=== PATIENT | female | born 1940 | race Caucasian/White ===

== ENCOUNTER 2022-12-14 19:21 | Inpatient (IN) ==
[2022-12-14] MEDS ORDERED: SODIUM CHLORIDE 0.9% 1000ML 1,000 ML IV ONE ×2 (20:06→20:18)
--- NOTE | 2022-12-14 20:15 | Emergency Department Note ---
History of Present Illness General Chief complaint: Fall Stated complaint: Fall, Facial Elam, AMS, Urinary Symptoms Time Seen by Provider: 12/14/22 20:01 Source: patient, RN notes reviewed and old records reviewed Mode of arrival: ambulatory Limitations: no limitations History of Present Illness This patient is a 82-year-old female was brought in by EMS. Apparently she fell 2 or so days ago and was put back in the chair and when they came to check on her she was still in the chair and was more confused. No reported fever she has either elam or lesions on her left face chest and groin area as well as left anterior thigh. She is not sure how this happened. Denies that they itch. Denies chest pain or shortness of breath or numbness or weakness. Home Medications Medication Instructions Recorded Confirmed Type furosemide 20 mg tablet 20 mg PO QAM 12/14/22 12/14/22 History lisinopril 5 mg tablet 5 mg PO QAM 12/14/22 12/14/22 History Allergies Allergy/AdvReac Type Severity Reaction Status Date / Time No Known Allergies Allergy Unverified 12/14/22 22:31 Past Med/Surg History Social History Smoking Status: Unknown if ever smoked Preferred Language: Lithuanian Feels Safe at Home: Yes Immunizations: Past medical historyunknown Review of Systems A total of 10 systems reviewed and were otherwise negative Physical Exam Vital Signs Vital Signs - 24 hr 12/14/22 19:43 12/14/22 20:06 12/14/22 20:23 Temperature 36.9 C Temperature Source Oral Pulse Rate 109 H 101 H Pulse Rate [Apical] Pulse Rhythm [Apical] Pulse Strength [Apical] Respiratory Rate 22 22 Respiratory Effort / Characteristics Non-Labored Spontaneous Respiratory Depth Normal Respiratory Pattern Regular Blood Pressure 164/128 H 179/119 H Blood Pressure [Left Arm] Blood Pressure Mean 140 139 Blood Pressure Mean [Left Arm] Blood Pressure Position Semi-fowlers Blood Pressure Position [Left Arm] Pulse Oximetry 96 97 97 Oxygen Delivery Method Room Air Room Air Room Air Sepsis Recent Fever Within 48 Hours No Sepsis New/Unexplained Change in Mental Status Yes Sepsis Action Taken by Nursing Physician Notified 12/14/22 21:39 12/14/22 22:03 12/14/22 23:30 Temperature 36.5 C Temperature Source Oral Pulse Rate 100 H Pulse Rate [Apical] 95 H 97 H Pulse Rhythm [Apical] Regular Regular Pulse Strength [Apical] Normal Respiratory Rate 20 20 20 Respiratory Effort / Characteristics Non-Labored Spontaneous Non-Labored Spontaneous Respiratory Depth Normal Normal Respiratory Pattern Regular Regular Blood Pressure 172/107 H Blood Pressure [Left Arm] 191/116 H 187/107 H Blood Pressure Mean 128 Blood Pressure Mean [Left Arm] 141 133 Blood Pressure Position Blood Pressure Position [Left Arm] Semi-fowlers Semi-fowlers Pulse Oximetry 96 96 98 Oxygen Delivery Method Room Air Room Air Room Air Sepsis Recent Fever Within 48 Hours Sepsis New/Unexplained Change in Mental Status Sepsis Action Taken by Nursing General: Well developed well nourished older female who does seem to answer questions appropriately but vaguely in no acute distress, breathing comfortably on room air. Normal speech HEENT: Normal cephalic atraumatic with exception of a burn/lesion on the left cheek it is mildly red. Pupils are equal round and reactive to light. There is a small subconjunctival hematoma in the left lateral eye extraocular movements are intact. Oropharynx is pink with moist mucous membranes. No swelling of the mouth lips or tongue. Neck: Supple with a midline trachea. No meningeal signs or stiffness, no JVD or bruits. No Stridor. Chest: Clear to auscultation bilaterally. No wheezes or rhonchi. No increased work of breathing. Heart: Regular rate and rhythm without murmurs or gallops. Abdomen: Soft nontender, nondistended without rebound guarding or rigidity. Extremities: No cyanosis clubbing or edema. No calf tenderness or assymetry Spine/Back. Non tender to palpation. No CVA tenderness Skin: Good turgor. There is further skin lesions/rash in the groin as well as in the anterior chest and left anterior thigh Neurologic exam: Cranial nerves two through 12 are intact. Motor and sensation are intact and symmetrical throughout. Course Administered Medications Potassium Chloride/Sodium Chloride (Normal Saline W/20 Meq Kcl) 20 meq in 1,000 mls @ 80 mls/hr IV .[id number] ONE; Protocol Stop: 12/15/22 11:29 Last Admin: 12/14/22 22:48 Dose: 80 mls/hr Documented By: JT Discontinued Medications Sodium Chloride (Nss 1000ml) 1,000 mls @ 999 mls/hr IV .Q1H1M ONE Stop: 12/14/22 21:06 Last Infusion: 12/14/22 21:26 Dose: 0 mls/hr Documented By: Admin: 12/14/22 20:25 Dose: 999 mls/hr Documented By: JEREMIAS Piperacillin Sod/Tazobactam Sod (Zosyn) 4.5 gm in 120 mls @ 240 mls/hr IV NOW ONE Stop: 12/14/22 21:08 Last Infusion: 12/14/22 22:06 Dose: 0 mls/hr Documented By: Admin: 12/14/22 21:36 Dose: 240 mls/hr Documented By: JEREMIAS Sodium Chloride (Nss 1000ml) 500 mls @ 999 mls/hr IV .Q31M ONE Stop: 12/14/22 22:33 Last Infusion: 12/14/22 22:41 Dose: 0 mls/hr Documented By: Admin: 12/14/22 22:10 Dose: 999 mls/hr Documented By: JEREMIAS Lisinopril (Lisinopril 5 Mg Tab) 5 mg PO NOW ONE Stop: 12/14/22 22:46 Last Admin: 12/14/22 22:49 Dose: 5 mg Documented By: JEREMIAS Potassium Chloride (Potassium Chloride Crtab 20 Meq Tabcr) 40 meq PO NOW STA Stop: 12/14/22 22:18 Last Admin: 12/14/22 22:49 Dose: 40 meq Documented By: JEREMIAS Critical Care Time Critical Care Time: Yes Total Critical Care Time: 45 This patient was flagged as a Priority patient and thus I went in and promptly and saw her. Due to trauma, concern for sepsis and rhabdo, frequent re assessment and evaluation, consultation with the hospitalist, IV fluids and multiple testing, I have personally spent greater than 45 minutes of critical care time in the direct management of this patient. This includes bedside care, interpretation of diagnostic studies, and testing, discussion with consultants, patient, and family members, and other required patient management activities. This 45 minutes is in excess of all separately billable procedures. Multiple testing, Medical Decision Making Differential Diagnosis Sepsis, fall, trauma, dehydration, rhabdo, infection, UTI, electrolyte or metabolic abnormality Medical Records Attestation: I reviewed the patient's medical records. Home Medications Current Medication List: was personally reviewed by me Laboratory Data Attestation: I reviewed the patient's lab results. 12/14/22 20:20 12/14/22 20:20 Lab Results 12/14/22 12/14/22 12/14/22 Range/Units 20:13 20:20 20:20 WBC 13.67 H (4.8-10.8) K/ul RBC 4.63 (4.20-5.40) M/uL Hgb 14.0 (12.0-16.0) g/dl POC Hgb (12.0-16.0) g/dl Hct 41.6 (37.0-47.0) % POC Hct (37-47) % MCV 89.8 (80.0-100.0) fL MCH 30.2 (25.0-34.0) pg MCHC 33.7 (32.0-36.0) g/dL RDW Std Deviation 46.6 H (36.4-46.3) fL RDW Coeff of Champ 14.1 (11.5-14.5) % Plt Count 247 (130-400) K/uL MPV 9.9 (9.4-12.4) fL Immature Gran % (Auto) 0.4 % Neut % (Auto) 75.8 % Lymph % (Auto) 12.2 % [place] % (Auto) 10.8 % Eos % (Auto) 0.4 % Baso % (Auto) 0.4 % Neut # (Auto) 10.36 H (1.40-6.50) K/uL Lymph # (Auto) 1.67 (1.2-3.4) K/uL [place] # (Auto) 1.48 H (0.11-0.59) K/uL Eos # (Auto) 0.05 (0-0.50) K/uL Baso # (Auto) 0.05 (0-0.2) K/uL Immature Gran # (Auto) 0.06 (0.01-0.20) K/uL PT (9.0-12.0) Seconds INR (0.9-1.1) APTT (21.0-31.0) Seconds PTT Ratio POC Sodium (135-144) mmol/L Sodium 140 (136-145) mmol/L POC Potassium (3.3-5.0) mmol/L Potassium 3.3 L (3.5-5.1) mmol/L POC Chloride (101-112) mmol/L Chloride 103 (98-107) mmol/L Carbon Dioxide 28 (21-32) mmol/L POC Total CO2 (24-31) mmol/L Anion Gap 9 (3-11) POC Anion Gap (16-25) mmol/L POC BUN (7-18) mg/dl BUN 33 H (6-23) mg/dl Creatinine 0.79 (0.6-1.2) mg/dl POC Creatinine (0.6-1.3) mg/dl Est Cr Clr Drug Dosing Not Reportable Est GFR ( Amer) 80.2 ml/min Est GFR (Non-Af Amer) 69.2 ml/min BUN/Creatinine Ratio 41.8 H (10-20) Glucose 106 H (70-99(Fasting)) mg/dl POC Glucose (other) (70-99) mg/dl Lactate (0.4-2.0) mmol/L Calcium 9.6 (8.6-10.3) mg/dl POC Ioniz Calcium Asya (1.12-1.32) mmol/l Magnesium 2.2 (1.7-2.4) mg/dl Total Bilirubin 1.5 H (0.2-1.0) mg/dl Direct Bilirubin 0.2 (0-0.2) mg/dl AST 185 H (13-39) U/L ALT 89 H (7-52) U/L Alkaline Phosphatase 87 (34-104) U/L Total Creatine Kinase 4725 H (26-192) U/L Troponin I High Sens 112.2 H* (0-14) pg/ml Total Protein 7.4 (6.0-8.3) gm/dl Albumin 3.9 (3.4-5.0) gm/dl Procalcitonin (0-0.5) ng/ml Urine Color Urine Appearance (Clear) Urine pH (4.5-7.5) Ur Specific [place] (1.000-1.030) Urine Protein (Negative) Urine Glucose (UA) (Negative) Urine Ketones (Negative) Urine Blood (Negative) Urine Nitrite (Negative) Urine Bilirubin (Negative) Urine Urobilinogen (Negative) Ur Leukocyte Esterase (Negative) Urine WBC (Auto) (0-5) /hpf Urine RBC (Auto) (0-4) /hpf U Hyaline Cast (Auto) (0-5) /lpf U Epithel Cells (Auto) (0-5) /lpf Urine Bacteria (Auto) (Negative) SARS-CoV-2, RNA, NAAT NEGATIVE (NEGATIVE) 12/14/22 12/14/22 12/14/22 Range/Units 20:20 20:20 20:20 WBC (4.8-10.8) K/ul RBC (4.20-5.40) M/uL Hgb (12.0-16.0) g/dl POC Hgb (12.0-16.0) g/dl Hct (37.0-47.0) % POC Hct (37-47) % MCV (80.0-100.0) fL MCH (25.0-34.0) pg MCHC (32.0-36.0) g/dL RDW Std Deviation (36.4-46.3) fL RDW Coeff of Champ (11.5-14.5) % Plt Count (130-400) K/uL MPV (9.4-12.4) fL Immature Gran % (Auto) % Neut % (Auto) % Lymph % (Auto) % [place] % (Auto) % Eos % (Auto) % Baso % (Auto) % Neut # (Auto) (1.40-6.50) K/uL Lymph # (Auto) (1.2-3.4) K/uL [place] # (Auto) (0.11-0.59) K/uL Eos # (Auto) (0-0.50) K/uL Baso # (Auto) (0-0.2) K/uL Immature Gran # (Auto) (0.01-0.20) K/uL PT 11.0 (9.0-12.0) Seconds INR 1.0 (0.9-1.1) APTT 25.0 (21.0-31.0) Seconds PTT Ratio 0.9 POC Sodium (135-144) mmol/L Sodium (136-145) mmol/L POC Potassium (3.3-5.0) mmol/L Potassium (3.5-5.1) mmol/L POC Chloride (101-112) mmol/L Chloride (98-107) mmol/L Carbon Dioxide (21-32) mmol/L POC Total CO2 (24-31) mmol/L Anion Gap (3-11) POC Anion Gap (16-25) mmol/L POC BUN (7-18) mg/dl BUN (6-23) mg/dl Creatinine (0.6-1.2) mg/dl POC Creatinine (0.6-1.3) mg/dl Est Cr Clr Drug Dosing Est GFR ( Amer) ml/min Est GFR (Non-Af Amer) ml/min BUN/Creatinine Ratio (10-20) Glucose (70-99(Fasting)) mg/dl POC Glucose (other) (70-99) mg/dl Lactate 1.5 (0.4-2.0) mmol/L Calcium (8.6-10.3) mg/dl POC Ioniz Calcium Asya (1.12-1.32) mmol/l Magnesium (1.7-2.4) mg/dl Total Bilirubin (0.2-1.0) mg/dl Direct Bilirubin (0-0.2) mg/dl AST (13-39) U/L ALT (7-52) U/L Alkaline Phosphatase (34-104) U/L Total Creatine Kinase (26-192) U/L Troponin I High Sens (0-14) pg/ml Total Protein (6.0-8.3) gm/dl Albumin (3.4-5.0) gm/dl Procalcitonin 0.23 (0-0.5) ng/ml Urine Color Urine Appearance (Clear) Urine pH (4.5-7.5) Ur Specific [place] (1.000-1.030) Urine Protein (Negative) Urine Glucose (UA) (Negative) Urine Ketones (Negative) Urine Blood (Negative) Urine Nitrite (Negative) Urine Bilirubin (Negative) Urine Urobilinogen (Negative) Ur Leukocyte Esterase (Negative) Urine WBC (Auto) (0-5) /hpf Urine RBC (Auto) (0-4) /hpf U Hyaline Cast (Auto) (0-5) /lpf U Epithel Cells (Auto) (0-5) /lpf Urine Bacteria (Auto) (Negative) SARS-CoV-2, RNA, NAAT (NEGATIVE) 12/14/22 12/14/22 Range/Units 20:22 20:27 WBC (4.8-10.8) K/ul RBC (4.20-5.40) M/uL Hgb (12.0-16.0) g/dl POC Hgb 14.3 (12.0-16.0) g/dl Hct (37.0-47.0) % POC Hct 42 (37-47) % MCV (80.0-100.0) fL MCH (25.0-34.0) pg MCHC (32.0-36.0) g/dL RDW Std Deviation (36.4-46.3) fL RDW Coeff of Champ (11.5-14.5) % Plt Count (130-400) K/uL MPV (9.4-12.4) fL Immature Gran % (Auto) % Neut % (Auto) % Lymph % (Auto) % [place] % (Auto) % Eos % (Auto) % Baso % (Auto) % Neut # (Auto) (1.40-6.50) K/uL Lymph # (Auto) (1.2-3.4) K/uL [place] # (Auto) (0.11-0.59) K/uL Eos # (Auto) (0-0.50) K/uL Baso # (Auto) (0-0.2) K/uL Immature Gran # (Auto) (0.01-0.20) K/uL PT (9.0-12.0) Seconds INR (0.9-1.1) APTT (21.0-31.0) Seconds PTT Ratio POC Sodium 142 (135-144) mmol/L Sodium (136-145) mmol/L POC Potassium 3.4 (3.3-5.0) mmol/L Potassium (3.5-5.1) mmol/L POC Chloride 104 (101-112) mmol/L Chloride (98-107) mmol/L Carbon Dioxide (21-32) mmol/L POC Total CO2 27 (24-31) mmol/L Anion Gap (3-11) POC Anion Gap 15.0 L (16-25) mmol/L POC BUN 30 H (7-18) mg/dl BUN (6-23) mg/dl Creatinine (0.6-1.2) mg/dl POC Creatinine 0.8 (0.6-1.3) mg/dl Est Cr Clr Drug Dosing Est GFR ( Amer) ml/min Est GFR (Non-Af Amer) ml/min BUN/Creatinine Ratio (10-20) Glucose (70-99(Fasting)) mg/dl POC Glucose (other) 108 H (70-99) mg/dl Lactate (0.4-2.0) mmol/L Calcium (8.6-10.3) mg/dl POC Ioniz Calcium Asya 1.13 (1.12-1.32) mmol/l Magnesium (1.7-2.4) mg/dl Total Bilirubin (0.2-1.0) mg/dl Direct Bilirubin (0-0.2) mg/dl AST (13-39) U/L ALT (7-52) U/L Alkaline Phosphatase (34-104) U/L Total Creatine Kinase (26-192) U/L Troponin I High Sens (0-14) pg/ml Total Protein (6.0-8.3) gm/dl Albumin (3.4-5.0) gm/dl Procalcitonin (0-0.5) ng/ml Urine Color Yellow Urine Appearance Clear (Clear) Urine pH 6.0 (4.5-7.5) Ur Specific [place] 1.015 (1.000-1.030) Urine Protein 2+ H (Negative) Urine Glucose (UA) Negative (Negative) Urine Ketones Trace H (Negative) Urine Blood 2+ H (Negative) Urine Nitrite Negative (Negative) Urine Bilirubin Negative (Negative) Urine Urobilinogen Negative (Negative) Ur Leukocyte Esterase Negative (Negative) Urine WBC (Auto) 1-5 (0-5) /hpf Urine RBC (Auto) 10-30 H (0-4) /hpf U Hyaline Cast (Auto) 1-5 (0-5) /lpf U Epithel Cells (Auto) 0-5 (0-5) /lpf Urine Bacteria (Auto) Negative (Negative) SARS-CoV-2, RNA, NAAT (NEGATIVE) Imaging Data Attestation: I personally reviewed and interpreted this imaging study as follows: My Impression: Chest x-rayno acute infiltrate, failure, pneumothorax seen Head CTno hemorrhage or mass effect seen. Radiologist's Impression: Cervical Spine CT 12/14/22 20:39 Exam(s): CT C SPINE EXAM: CT Cervical Spine Without Intravenous Contrast CLINICAL HISTORY: Reason for exam: fall. TECHNIQUE: Axial computed tomography images of the cervical spine without intravenous contrast. CTDI is 25.44 mGy and DLP is 531.45 mGy-cm. Automated exposure control was utilized for the study. A dose lowering technique was utilized adhering to the principles of ALARA. COMPARISON: No relevant prior studies available. FINDINGS: Vertebrae: Unremarkable. No acute fracture. Discs/spinal canal/neural foramina: Moderately advanced multilevel degenerative disc disease changes seen most prominently at C5/6 and C6/7 junction. No spinal canal stenosis. Soft tissues: Unremarkable. IMPRESSION: No acute fracture or dislocation Electronically signed by: Jimmy Clarke MD 12/14/22 22:[address] 12/14/22 20:39 Exam(s): CT CHEST Without Contrast EXAM: CT Chest Without Intravenous Contrast CLINICAL HISTORY: Reason for exam: fall. TECHNIQUE: Axial computed tomography images of the chest without intravenous contrast. CTDI is 37.32 mGy and DLP is 624.41 mGy-cm. Automated exposure control was utilized for the study. A dose lowering technique was utilized adhering to the principles of ALARA. COMPARISON: No relevant prior studies available. FINDINGS: Lungs: Unremarkable. No mass. No consolidation. Pleural space: Unremarkable. No pneumothorax. No significant effusion. Heart: Moderate cardiomegaly. Mild coronary vascular calcifications are seen. No significant pericardial effusion. Bones/joints: Unremarkable. No acute fracture. No dislocation. Lymph nodes: Unremarkable. No enlarged lymph nodes. IMPRESSION: No acute traumatic injuries seen in the chest Electronically signed by: Jimmy Clarke MD 12/14/22 22:[address] 12/14/22 20:39 Exam(s): CT FACIAL Without Contrast EXAM: CT Maxillofacial Without Intravenous Contrast CLINICAL HISTORY: Reason for exam: fall. TECHNIQUE: Axial computed tomography images of the face without intravenous contrast. CTDI is none 36.26 mGy and DLP is 697.26 mGy-cm. Automated exposure control was utilized for the study. A dose lowering technique was utilized adhering to the principles of ALARA. COMPARISON: No relevant prior studies available. FINDINGS: Bones/joints: No acute fracture. Soft tissues: Unremarkable. Orbits: Unremarkable. Sinuses: Unremarkable. No air-fluid levels. IMPRESSION: Normal maxillofacial CT. Electronically signed by: Jimmy Clarke MD 12/14/22 22:[address] 12/14/22 20:39 Exam(s): CT HEAD Without Contrast EXAM: CT Head Without Intravenous Contrast CLINICAL HISTORY: Reason for exam: fall. TECHNIQUE: Axial computed tomography images of the head/brain without intravenous contrast. CTDI is 36.26 mGy and DLP is 697.26 mGy-cm. Automated exposure control was utilized for the study. A dose lowering technique was utilized adhering to the principles of ALARA. COMPARISON: No relevant prior studies available. FINDINGS: Brain: Chronic periventricular ischemic demargination changes seen due to small vessel disease. No hemorrhage. Ventricles: Unremarkable. No ventriculomegaly. Bones/joints: Unremarkable. No acute fracture. Soft tissues: Unremarkable. Sinuses: Unremarkable as visualized. No acute sinusitis. Mastoid air cells: Unremarkable as visualized. No mastoid effusion. IMPRESSION: No acute intracranial abnormality Electronically signed by: Jimmy Clarke MD 12/14/22 22:25 PM Abdomen/Pelvis CT 12/14/22 20:42 Exam(s): CT ABDOMEN + PELVIS Without Contrast EXAM: CT Abdomen and Pelvis Without Intravenous Contrast CLINICAL HISTORY: Reason for exam: fall. TECHNIQUE: Axial computed tomography images of the abdomen and pelvis without intravenous contrast. CTDI is 37.32 mGy and DLP is 624.41 mGy-cm. Automated exposure control was utilized for the study. A dose lowering technique was utilized adhering to the principles of ALARA. COMPARISON: No relevant prior studies available. FINDINGS: Lung bases: Unremarkable. No mass. No consolidation. Heart: Mild cardiomegaly. ABDOMEN: Liver: Unremarkable. Gallbladder and bile ducts: Unremarkable. No calcified stones. No ductal dilation. Pancreas: Unremarkable. No ductal dilation. Spleen: Unremarkable. No splenomegaly. Adrenals: Unremarkable. No mass. Kidneys and ureters: Unremarkable. No obstructing stones. No hydronephrosis. Stomach and bowel: Unremarkable. No obstruction. No mucosal thickening. PELVIS: Appendix: No findings to suggest acute appendicitis. Bladder: Unremarkable. No stones. Reproductive: Unremarkable as visualized. ABDOMEN and PELVIS: Intraperitoneal space: Unremarkable. No free air. No significant fluid collection. 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 No acute fracture. No dislocation. Soft tissues: Unremarkable. Vasculature: Moderately advanced vascular calcifications seen in the abdominal aorta and its branches. No abdominal aortic aneurysm. Lymph nodes: Unremarkable. No enlarged lymph nodes. IMPRESSION: No acute intra-abdominal process identified Electronically signed by: Jimmy Clarke MD 12/14/22 22:28 PM ECG Data Attestation: I personally reviewed and interpreted this ECG as follows: Indication: + weakness Rate (beats per minute): 103 Rhythm: + sinus tachycardia ECG Intervals/blocks: + Normal QRS, + Normal QT and + Normal CT ECG Sylvester: + Normal ECG ST segments: + Normal ST segments ECG Findings: + PACs and + PVCs Comparison ECG Date: from (02/18/04) Change: the following changes noted (Occasional PVCs and PACs are now present) MDM Narrative This patient comes in as described above. She was placed in room B2 she is a p riority patient so I went and saw her she has either elam or some sort of lesions on her left face groin left anterior thigh and chest. The one on her face is red. She also has a subconjunctival hematoma on that side. She denies any shortness of breath or chest pain. IV X established was hydrated with normal saline bolus full sepsis type work-up was obtained there is no old records in our computer she tells me her doctor is Dr. Dia so I had her field nurse case manager pull records from [email or web address] to ensure that she has no allergies and check other medical issues. She tells me she has no allergies. White count was elevated at 13.6 however her other inflammatory markers with lactate and proca lcitonin were not elevated at her BUN was elevated at 33. Her CK did come back significant elevated 4007 and 25 consistent with rhabdo. Her troponin is mildly elevated at 112 which could also be from rhabdomyolysis, she has no chest pain and no EKG changes thus far. She has received IV fluid boluses. She did receive IV Zosyn initially with concern for sepsis. We have cleaned her room wounds and place some bacitracin particular in the face. I did scruggs trauma type scans without contrast given the concern for rhabdo and they were all negative as per the radiologist. I have consulted Dr. Bloom and I do think she needs to be admitted/observed for further treatment evaluation and hydration. He saw her in the ER we will admit her for these measures. Continuous cardiac monitoring: Orders placed in EMR for continuous cardiac monitoring: Upon my evaluation patient to be in sinus tachycardia with a rate of 100 Impression & Plan Rhabdomyolysis, Fall, Weakness, Acute dehydration, Lab test negative for COVID- 19 virus, Skin lesion Discharge Plan Visit Data Chief Complaint: Fall Stated Complaint: Fall, Facial Elam, AMS, Urinary Symptoms ED Provider: Benjamin Russell Discharge Problem: Rhabdomyolysis, Fall, Weakness, Acute dehydration, Lab test negative for COVID- 19 virus, Skin lesion Forms Stand Alone Forms: My [facility] Prescriptions Prescriptions: No Action furosemide 20 mg tablet 20 mg PO QAM lisinopril 5 mg tablet 5 mg PO QAM Referrals Referrals: PCP,NO [Physician] -
[2022-12-14] MEDS ORDERED: PIPERACILLIN/TAZOBACTAM 4.5 GM/120 ML BAG IV ONE (20:39)
[2022-12-14 20:40] LABS: iSTAT Creatinine 0.8 mg/dl (0.6-1.3); iSTAT Hemoglobin 14.3 g/dl (12.0-16.0); iSTAT Ionized Calcium 1.13 mmol/l (1.12-1.32); iSTAT Potassium 3.4 mmol/L (3.3-5.0)
[2022-12-14 20:49] LABS: Basophils # (auto) 0.05 K/uL (0-0.2); Basophils % (auto) 0.4 %; Eosinophils # (auto) 0.05 K/uL (0-0.50); Eosinophils % (auto) 0.4 %; Hematocrit (blood only) 41.6 % (37.0-47.0); Immature Granulocytes # (auto) 0.06 K/uL (0.01-0.20); Immature Granulocytes % (auto) 0.4 %; Lymphocytes # (auto) 1.67 K/uL (1.2-3.4); Lymphocytes % (auto) 12.2 %; Mean Corpuscular Hemoglobin 30.2 pg (25.0-34.0); Mean Corpuscular Hgb Conc 33.7 g/dL (32.0-36.0); Mean Corpuscular Volume 89.8 fL (80.0-100.0); Mean Platelet Volume 9.9 fL (9.4-12.4); Monocytes # (auto) 1.48 K/uL (0.11-0.59); Monocytes % (auto) 10.8 %; Neutrophils # (auto) 10.36 K/uL (1.40-6.50); Neutrophils % (auto) 75.8 %; Platelet Count 247 K/uL (130-400); RDW Coefficient of Variation 14.1 % (11.5-14.5); RDW Standard Deviation 46.6 fL (36.4-46.3); Red Blood Count 4.63 M/uL (4.20-5.40); White Blood Count 13.67 K/ul (4.8-10.8)
[2022-12-14 20:59] LABS: Appearance Urine Clear (Clear); Bacteria Urine Automated Negative (Negative); Bilirubin Urine Negative (Negative); Blood Urine 2+ (Negative); Color Urine Yellow; Epithelial Cell Urine Auto 0-5 /lpf (0-5); Glucose Urine UA Negative (Negative); Ketones Urine Trace (Negative); Leukocyte Esterase Urine Negative (Negative); Nitrite Urine Negative (Negative); Protein Urine 2+ (Negative); Specific Gravity Urine 1.015 (1.000-1.030); Urobilinogen Urine Negative (Negative)
[2022-12-14 21:09] LABS: Anion Gap 9 (3-11); BUN Creatinine Ratio 41.8 (10-20); Blood Urea Nitrogen 33 mg/dl (6-23); Calcium 9.6 mg/dl (8.6-10.3); Carbon Dioxide 28 mmol/L (21-32); Chloride 103 mmol/L (98-107); Est GFR (African American) 80.2 ml/min; Est GFR (Non-African American) 69.2 ml/min; Glucose 106 mg/dl (70-99(Fasting)); Potassium 3.3 mmol/L (3.5-5.1); Sodium 140 mmol/L (136-145)
[2022-12-14 21:26] LABS: Partial Thromboplastin Ratio 0.9
[2022-12-14 21:32] LABS: Alanine Aminotransferase 89 U/L (7-52); Albumin Level 3.9 gm/dl (3.4-5.0); Alkaline Phosphatase 87 U/L (34-104); Aspartate Aminotransferase 185 U/L (13-39); Bilirubin Direct 0.2 mg/dl (0-0.2); Bilirubin,Total 1.5 mg/dl (0.2-1.0); Creatine Kinase 4725 U/L (26-192); Magnesium 2.2 mg/dl (1.7-2.4); Total Protein 7.4 gm/dl (6.0-8.3); Troponin I High Sensitivity 112.2 pg/ml (0-14)
[2022-12-14] MEDS ORDERED: SODIUM CHLORIDE 0.9% 1000ML 500 ML IV ONE (22:03)
[2022-12-14] MEDS ORDERED: POTASSIUM CHLORIDE CRTAB 20 MEQ TABCR PO STA (22:17)
--- NOTE | 2022-12-14 22:18 | CT Scan Report ---
Exam(s): CT C SPINE EXAM: CT Cervical Spine Without Intravenous Contrast CLINICAL HISTORY: Reason for exam: fall. TECHNIQUE: Axial computed tomography images of the cervical spine without intravenous contrast. CTDI is 25.44 mGy and DLP is 531.45 mGy-cm. Automated exposure control was utilized for the study. A dose lowering technique was utilized adhering to the principles of ALARA. COMPARISON: No relevant prior studies available. FINDINGS: Vertebrae: Unremarkable. No acute fracture. Discs/spinal canal/neural foramina: Moderately advanced multilevel degenerative disc disease changes seen most prominently at C5/6 and C6/7 junction. No spinal canal stenosis. Soft tissues: Unremarkable. IMPRESSION: No acute fracture or dislocation Electronically signed by: Jimmy Clarke MD 12/14/22 22:18 PM
--- NOTE | 2022-12-14 22:21 | CT Scan Report ---
Exam(s): CT CHEST Without Contrast EXAM: CT Chest Without Intravenous Contrast CLINICAL HISTORY: Reason for exam: fall. TECHNIQUE: Axial computed tomography images of the chest without intravenous contrast. CTDI is 37.32 mGy and DLP is 624.41 mGy-cm. Automated exposure control was utilized for the study. A dose lowering technique was utilized adhering to the principles of ALARA. COMPARISON: No relevant prior studies available. FINDINGS: Lungs: Unremarkable. No mass. No consolidation. Pleural space: Unremarkable. No pneumothorax. No significant effusion. Heart: Moderate cardiomegaly. Mild coronary vascular calcifications are seen. No significant pericardial effusion. Bones/joints: Unremarkable. No acute fracture. No dislocation. Lymph nodes: Unremarkable. No enlarged lymph nodes. IMPRESSION: No acute traumatic injuries seen in the chest Electronically signed by: Jimmy Clarke MD 12/14/22 22:20 PM
--- NOTE | 2022-12-14 22:26 | CT Scan Report ---
Exam(s): CT HEAD Without Contrast EXAM: CT Head Without Intravenous Contrast CLINICAL HISTORY: Reason for exam: fall. TECHNIQUE: Axial computed tomography images of the head/brain without intravenous contrast. CTDI is 36.26 mGy and DLP is 697.26 mGy-cm. Automated exposure control was utilized for the study. A dose lowering technique was utilized adhering to the principles of ALARA. COMPARISON: No relevant prior studies available. FINDINGS: Brain: Chronic periventricular ischemic demargination changes seen due to small vessel disease. No hemorrhage. Ventricles: Unremarkable. No ventriculomegaly. Bones/joints: Unremarkable. No acute fracture. Soft tissues: Unremarkable. Sinuses: Unremarkable as visualized. No acute sinusitis. Mastoid air cells: Unremarkable as visualized. No mastoid effusion. IMPRESSION: No acute intracranial abnormality Electronically signed by: Jimmy Clarke MD 12/14/22 22:25 PM
--- NOTE | 2022-12-14 22:28 | CT Scan Report ---
Exam(s): CT FACIAL Without Contrast EXAM: CT Maxillofacial Without Intravenous Contrast CLINICAL HISTORY: Reason for exam: fall. TECHNIQUE: Axial computed tomography images of the face without intravenous contrast. CTDI is none 36.26 mGy and DLP is 697.26 mGy-cm. Automated exposure control was utilized for the study. A dose lowering technique was utilized adhering to the principles of ALARA. COMPARISON: No relevant prior studies available. FINDINGS: Bones/joints: No acute fracture. Soft tissues: Unremarkable. Orbits: Unremarkable. Sinuses: Unremarkable. No air-fluid levels. IMPRESSION: Normal maxillofacial CT. Electronically signed by: Jimmy Clarke MD 12/14/22 22:27 PM
--- NOTE | 2022-12-14 22:29 | CT Scan Report ---
Exam(s): CT ABDOMEN + PELVIS Without Contrast EXAM: CT Abdomen and Pelvis Without Intravenous Contrast CLINICAL HISTORY: Reason for exam: fall. TECHNIQUE: Axial computed tomography images of the abdomen and pelvis without intravenous contrast. CTDI is 37.32 mGy and DLP is 624.41 mGy-cm. Automated exposure control was utilized for the study. A dose lowering technique was utilized adhering to the principles of ALARA. COMPARISON: No relevant prior studies available. FINDINGS: Lung bases: Unremarkable. No mass. No consolidation. Heart: Mild cardiomegaly. ABDOMEN: Liver: Unremarkable. Gallbladder and bile ducts: Unremarkable. No calcified stones. No ductal dilation. Pancreas: Unremarkable. No ductal dilation. Spleen: Unremarkable. No splenomegaly. Adrenals: Unremarkable. No mass. Kidneys and ureters: Unremarkable. No obstructing stones. No hydronephrosis. Stomach and bowel: Unremarkable. No obstruction. No mucosal thickening. PELVIS: Appendix: No findings to suggest acute appendicitis. Bladder: Unremarkable. No stones. Reproductive: Unremarkable as visualized. ABDOMEN and PELVIS: Intraperitoneal space: Unremarkable. No free air. No significant fluid collection. 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 No acute fracture. No dislocation. Soft tissues: Unremarkable. Vasculature: Moderately advanced vascular calcifications seen in the abdominal aorta and its branches. No abdominal aortic aneurysm. Lymph nodes: Unremarkable. No enlarged lymph nodes. IMPRESSION: No acute intra-abdominal process identified Electronically signed by: Jimmy Clarke MD 12/14/22 22:28 PM
[2022-12-14] MEDS ORDERED: Patient's ALLERGY Info needs ENTERED SCH (22:30)
[2022-12-14] MEDS ORDERED: lisinopril 5 MG TAB PO ONE (22:45)
[2022-12-14] MEDS ORDERED: NSS + 20MEQ KCL 20 MEQ/1,000 ML BAG IV ONE (23:00)
--- NOTE | 2022-12-15 01:31 | History & Physical Report ---
Date of Service December 15, 2022 Assessment & Plan (1) Sepsis: Plan: Secondary to infected wounds on the face and other parts of the body Rhabdomyolysis secondary to fall/infection History ambulatory dysfunction Hypertensive urgency Systolic murmur on exam lung cancer status post surgery chronic leg edema as per records diuretic Rx ovarian cancer status post surgery Hyperglycemia rule out DM undiagnosed dementia as per family, functional disability Medical telemetry CS, Cefepime, Doxycycline Follow CPK response to IVF Titrate lisinopril TTE Re: Systolic murmur check hemoglobin A1c PT OT eval Social service re: discharge planning, may need placement DVT prophylaxis. Lovenox subcu Full code until further discussion with family. Attempted to contact patient daughter (Ms. Annie Talley, contact #[phone]) over the phone to obtain additional history and to discuss plan of care. No answer. Left message for call back. Text document was generated using [employer] voice recognition software. It may contain grammatical or spelling errors. Kindly contact undersigned for clarification of any documentation item in question. History of Present Illness Chief Complaint: I do not know as per patient Primary Care Provider: Brayan Johnson MD History obtained from patient, ER provider, and records. Medical history significant for hypertension, lung cancer status post surgery, chronic leg edema as per records, ovarian cancer status post surgery, ambulatory dysfunction, undiagnosed dementia as per family. Patient lives at home with her . Patient fell at home about 2 days ago as per EMS report. Family able to sit patient back in recliner chair. Patient noted to be more confused than usual last night. EMS found patient to have wounds on the left cheek and blistering redness in other parts of the body. Patient strongly smelled of urine and was incontinent of stool. Patient does not know why she is in the hospital. Denies headache, chest pain, SOB, abdominal pain, dysuria symptoms. Highest SBP of 190s at the ER. Medical History as above Surgical History : Double lung lobectomy, FLORY Family History : Hypertension Personal/Social history : Non-smoker, occasional EtOH intake, lives with Allergies Allergy/AdvReac Type Severity Reaction Status Date / Time No Known Allergies Allergy Unverified 12/14/22 22:31 Home Medications Medication Instructions Recorded Confirmed Type furosemide 20 mg tablet 20 mg PO QAM 12/14/22 12/14/22 History lisinopril 5 mg tablet 5 mg PO QAM 12/14/22 12/14/22 History Past Med/Surg History Social History Smoking Status: Unknown if ever smoked Hx Alcohol Use: No Hx Substance Use: No Preferred Language: Kyrgyz Windows System Admin Required: No Beliefs That Will Affect Care: None Current Living Situation: Spouse Feels Safe at Home: Yes Review of Systems Review of Systems: Could not be reliably obtained secondary to dementia Physical Exam Physical Exam: GENERAL: Pleasant, demented, no respiratory distress SKIN: Normal color, erythematous spots chest and lower extremities, warm HEENT: [place] palpebral conjunctivae, tender left facial swelling, infected open wound left cheek, left ptosis, dry buccal mucosa NECK : Supple, no tenderness CHEST : CTA, no tenderness HEART : Tachycardic, systolic murmur ABDOMEN: Some distention, nontender EXTREMITIES : Bilateral LE swelling, no LE tenderness, no other conspicuous deformities noted NEUROLOGIC : Demented, no facial asymmetry, no other gross focality Results & Data Results & Data Vital Signs (Past 12 Hours) Vital Signs Temp Pulse Pulse Resp BP BP Pulse Ox 12/15/22 00:00 102 H 20 144/103 H 95 12/15/22 00:45 37.1 C 12/14/22 23:30 100 H 20 172/107 H 98 12/14/22 22:03 97 H 20 187/107 H 96 12/14/22 21:39 36.5 C 95 H 20 191/116 H 96 12/14/22 20:23 101 H 22 179/119 H 97 12/14/22 20:06 97 12/14/22 19:43 36.9 C 109 H 22 164/128 H 96 O2 Del Method 12/15/22 00:00 Room Air 12/15/22 00:45 12/14/22 23:30 Room Air 12/14/22 22:03 Room Air 12/14/22 21:39 Room Air 12/14/22 20:23 Room Air 12/14/22 20:06 Room Air 12/14/22 19:43 Room Air Laboratory Results Laboratory Results WBC 13.67 K/ul (4.8-10.8) H 12/14/22 20:20 RBC 4.63 M/uL (4.20-5.40) 12/14/22 20:20 Hgb 14.0 g/dl (12.0-16.0) 12/14/22 20:20 POC Hgb 14.3 g/dl (12.0-16.0) 12/14/22 20:27 Hct 41.6 % (37.0-47.0) 12/14/22 20:20 POC Hct 42 % (37-47) 12/14/22 20:27 MCV 89.8 fL (80.0-100.0) 12/14/22 20:20 MCH 30.2 pg (25.0-34.0) 12/14/22 20:20 MCHC 33.7 g/dL (32.0-36.0) 12/14/22 20:20 RDW Std Deviation 46.6 fL (36.4-46.3) H 12/14/22 20:20 RDW Coeff of Champ 14.1 % (11.5-14.5) 12/14/22 20:20 Plt Count 247 K/uL (130-400) 12/14/22 20:20 MPV 9.9 fL (9.4-12.4) 12/14/22 20:20 Immature Gran % (Auto) 0.4 % 12/14/22 20:20 Neut % (Auto) 75.8 % 12/14/22 20:20 Lymph % (Auto) 12.2 % 12/14/22 20:20 [place] % (Auto) 10.8 % 12/14/22 20:20 Eos % (Auto) 0.4 % 12/14/22 20:20 Baso % (Auto) 0.4 % 12/14/22 20:20 Neut # (Auto) 10.36 K/uL (1.40-6.50) H 12/14/22 20:20 Lymph # (Auto) 1.67 K/uL (1.2-3.4) 12/14/22 20:20 [place] # (Auto) 1.48 K/uL (0.11-0.59) H 12/14/22 20:20 Eos # (Auto) 0.05 K/uL (0-0.50) 12/14/22 20:20 Baso # (Auto) 0.05 K/uL (0-0.2) 12/14/22 20:20 Immature Gran # (Auto) 0.06 K/uL (0.01-0.20) 12/14/22 20:20 PT 11.0 Seconds (9.0-12.0) 12/14/22 20:20 INR 1.0 (0.9-1.1) 12/14/22 20:20 APTT 25.0 Seconds (21.0-31.0) 12/14/22 20:20 PTT Ratio 0.9 12/14/22 20:20 POC Sodium 142 mmol/L (135-144) 12/14/22 20:27 Sodium 140 mmol/L (136-145) 12/14/22 20:20 POC Potassium 3.4 mmol/L (3.3-5.0) 12/14/22 20:27 Potassium 3.3 mmol/L (3.5-5.1) L 12/14/22 20:20 POC Chloride 104 mmol/L (101-112) 12/14/22 20:27 Chloride 103 mmol/L (98-107) 12/14/22 20:20 Carbon Dioxide 28 mmol/L (21-32) 12/14/22 20:20 POC Total CO2 27 mmol/L (24-31) 12/14/22 20:27 Anion Gap 9 (3-11) 12/14/22 20:20 POC Anion Gap 15.0 mmol/L (16-25) L 12/14/22 20:27 POC BUN 30 mg/dl (7-18) H 12/14/22 20:27 BUN 33 mg/dl (6-23) H 12/14/22 20:20 Creatinine 0.79 mg/dl (0.6-1.2) 12/14/22 20:20 POC Creatinine 0.8 mg/dl (0.6-1.3) 12/14/22 20:27 Est Cr Clr Drug Dosing Not Reportable 12/14/22 20:20 Est GFR ( Amer) 80.2 ml/min 12/14/22 20:20 Est GFR (Non-Af Amer) 69.2 ml/min 12/14/22 20:20 BUN/Creatinine Ratio 41.8 (10-20) H 12/14/22 20:20 Glucose 106 mg/dl (70-99(Fasting)) H 12/14/22 20:20 POC Glucose (other) 108 mg/dl (70-99) H 12/14/22 20:27 Lactate 1.5 mmol/L (0.4-2.0) 12/14/22 20:20 Calcium 9.6 mg/dl (8.6-10.3) 12/14/22 20:20 POC Ioniz Calcium Asya 1.13 mmol/l (1.12-1.32) 12/14/22 20:27 Magnesium 2.2 mg/dl (1.7-2.4) 12/14/22 20:20 Total Bilirubin 1.5 mg/dl (0.2-1.0) H 12/14/22 20:20 Direct Bilirubin 0.2 mg/dl (0-0.2) 12/14/22 20:20 AST 185 U/L (13-39) H 12/14/22 20:20 ALT 89 U/L (7-52) H 12/14/22 20:20 Alkaline Phosphatase 87 U/L (34-104) 12/14/22 20:20 Total Creatine Kinase 4725 U/L (26-192) H 12/14/22 20:20 Troponin I High Sens 112.2 pg/ml (0-14) H* 12/14/22 20:20 Total Protein 7.4 gm/dl (6.0-8.3) 12/14/22 20:20 Albumin 3.9 gm/dl (3.4-5.0) 12/14/22 20:20 Procalcitonin 0.23 ng/ml (0-0.5) 12/14/22 20:20 Urine Color Yellow 12/14/22 20:22 Urine Appearance Clear (Clear) 12/14/22 20:22 Urine pH 6.0 (4.5-7.5) 12/14/22 20:22 Ur Specific [place] 1.015 (1.000-1.030) 12/14/22 20:22 Urine Protein 2+ (Negative) H 12/14/22 20:22 Urine Glucose (UA) Negative (Negative) 12/14/22 20:22 Urine Ketones Trace (Negative) H 12/14/22 20:22 Urine Blood 2+ (Negative) H 12/14/22 20:22 Urine Nitrite Negative (Negative) 12/14/22 20:22 Urine Bilirubin Negative (Negative) 12/14/22 20:22 Urine Urobilinogen Negative (Negative) 12/14/22 20:22 Ur Leukocyte Esterase Negative (Negative) 12/14/22 20:22 Urine WBC (Auto) 1-5 /hpf (0-5) 12/14/22 20:22 Urine RBC (Auto) 10-30 /hpf (0-4) H 12/14/22 20:22 U Hyaline Cast (Auto) 1-5 /lpf (0-5) 12/14/22 20:22 U Epithel Cells (Auto) 0-5 /lpf (0-5) 12/14/22 20:22 Urine Bacteria (Auto) Negative (Negative) 12/14/22 20:22 SARS-CoV-2, RNA, NAAT NEGATIVE (NEGATIVE) 12/14/22 20:[address] 12/14/22 20:39 Exam(s): CT C SPINE EXAM: CT Cervical Spine Without Intravenous Contrast CLINICAL HISTORY: Reason for exam: fall. TECHNIQUE: Axial computed tomography images of the cervical spine without intravenous contrast. CTDI is 25.44 mGy and DLP is 531.45 mGy-cm. Automated exposure control was utilized for the study. A dose lowering technique was utilized adhering to the principles of ALARA. COMPARISON: No relevant prior studies available. FINDINGS: Vertebrae: Unremarkable. No acute fracture. Discs/spinal canal/neural foramina: Moderately advanced multilevel degenerative disc disease changes seen most prominently at C5/6 and C6/7 junction. No spinal canal stenosis. Soft tissues: Unremarkable. IMPRESSION: No acute fracture or dislocation Electronically signed by: Jimmy Clarke MD 12/14/22 22:[address] 12/14/22 20:39 Exam(s): CT CHEST Without Contrast EXAM: CT Chest Without Intravenous Contrast CLINICAL HISTORY: Reason for exam: fall. TECHNIQUE: Axial computed tomography images of the chest without intravenous contrast. CTDI is 37.32 mGy and DLP is 624.41 mGy-cm. Automated exposure control was utilized for the study. A dose lowering technique was utilized adhering to the principles of ALARA. COMPARISON: No relevant prior studies available. FINDINGS: Lungs: Unremarkable. No mass. No consolidation. Pleural space: Unremarkable. No pneumothorax. No significant effusion. Heart: Moderate cardiomegaly. Mild coronary vascular calcifications are seen. No significant pericardial effusion. Bones/joints: Unremarkable. No acute fracture. No dislocation. Lymph nodes: Unremarkable. No enlarged lymph nodes. IMPRESSION: No acute traumatic injuries seen in the chest Electronically signed by: Jimmy Clarke MD 12/14/22 22:[address] 12/14/22 20:39 Exam(s): CT FACIAL Without Contrast EXAM: CT Maxillofacial Without Intravenous Contrast CLINICAL HISTORY: Reason for exam: fall. TECHNIQUE: Axial computed tomography images of the face without intravenous contrast. CTDI is none 36.26 mGy and DLP is 697.26 mGy-cm. Automated exposure control was utilized for the study. A dose lowering technique was utilized adhering to the principles of ALARA. COMPARISON: No relevant prior studies available. FINDINGS: Bones/joints: No acute fracture. Soft tissues: Unremarkable. Orbits: Unremarkable. Sinuses: Unremarkable. No air-fluid levels. IMPRESSION: Normal maxillofacial CT. Electronically signed by: Jimmy Clarke MD 12/14/22 22:[address] 12/14/22 20:39 Exam(s): CT HEAD Without Contrast EXAM: CT Head Without Intravenous Contrast CLINICAL HISTORY: Reason for exam: fall. TECHNIQUE: Axial computed tomography images of the head/brain without intravenous contrast. CTDI is 36.26 mGy and DLP is 697.26 mGy-cm. Automated exposure control was utilized for the study. A dose lowering technique was utilized adhering to the principles of ALARA. COMPARISON: No relevant prior studies available. FINDINGS: Brain: Chronic periventricular ischemic demargination changes seen due to small vessel disease. No hemorrhage. Ventricles: Unremarkable. No ventriculomegaly. Bones/joints: Unremarkable. No acute fracture. Soft tissues: Unremarkable. Sinuses: Unremarkable as visualized. No acute sinusitis. Mastoid air cells: Unremarkable as visualized. No mastoid effusion. IMPRESSION: No acute intracranial abnormality Electronically signed by: Jimmy Clarke MD 12/14/22 22:25 PM Abdomen/Pelvis CT 12/14/22 20:42 Exam(s): CT ABDOMEN + PELVIS Without Contrast EXAM: CT Abdomen and Pelvis Without Intravenous Contrast CLINICAL HISTORY: Reason for exam: fall. TECHNIQUE: Axial computed tomography images of the abdomen and pelvis without intravenous contrast. CTDI is 37.32 mGy and DLP is 624.41 mGy-cm. Automated exposure control was utilized for the study. A dose lowering technique was utilized adhering to the principles of ALARA. COMPARISON: No relevant prior studies available. FINDINGS: Lung bases: Unremarkable. No mass. No consolidation. Heart: Mild cardiomegaly. ABDOMEN: Liver: Unremarkable. Gallbladder and bile ducts: Unremarkable. No calcified stones. No ductal dilation. Pancreas: Unremarkable. No ductal dilation. Spleen: Unremarkable. No splenomegaly. Adrenals: Unremarkable. No mass. Kidneys and ureters: Unremarkable. No obstructing stones. No hydronephrosis. Stomach and bowel: Unremarkable. No obstruction. No mucosal thickening. PELVIS: Appendix: No findings to suggest acute appendicitis. Bladder: Unremarkable. No stones. Reproductive: Unremarkable as visualized. ABDOMEN and PELVIS: Intraperitoneal space: Unremarkable. No free air. No significant fluid collection. 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 No acute fracture. No dislocation. Soft tissues: Unremarkable. Vasculature: Moderately advanced vascular calcifications seen in the abdominal aorta and its branches. No abdominal aortic aneurysm. Lymph nodes: Unremarkable. No enlarged lymph nodes. IMPRESSION: No acute intra-abdominal process identified Electronically signed by: Jimmy Clarke MD 12/14/22 22:28 PM Diagnostic Findings EKG as per my interpretation : Rate 105, sinus tachycardia, LAD, LAFB, no ischemia, PVCs
[2022-12-15] MEDS ORDERED: DOXYCYCLINE HYCLATE 100 MG in DEXTROSE 5% 100 ML IV STA (01:55)
[2022-12-15] MEDS ORDERED: cloNIDine HCL 0.1 MG TAB PO ONE (02:14)
[2022-12-15 02:24] LABS: Albumin Level 3.6 gm/dl (3.4-5.0); Bilirubin Direct 0.3 mg/dl (0-0.2); Bilirubin,Total 1.7 mg/dl (0.2-1.0); Total Protein 7.2 gm/dl (6.0-8.3)
[2022-12-15] MEDS ORDERED: Patient's HEIGHT &/or WEIGHT Needed SCH (04:15)
--- NOTE | 2022-12-15 05:30 | Ultrasound Report ---
Exam(s): US VENOUS BILATERAL LOWER EXTREMITIES EXAM: US Duplex Bilateral Lower Extremities Veins CLINICAL HISTORY: Reason for exam: leg swellling. TECHNIQUE: Real-time duplex ultrasound scan of the bilateral lower extremity veins integrating B-mode two-dimensional vascular structure, Doppler spectral analysis, color flow Doppler imaging and compression. COMPARISON: No relevant prior studies available. FINDINGS: Right deep veins: Unremarkable. No DVT in the right common femoral, femoral, proximal deep femoral or popliteal veins. The veins demonstrate normal color flow, are normally compressible, with normal phasic flow and/or augmentation response. Right superficial veins: Unremarkable. No thrombus in the visualized right great saphenous vein. Left deep veins: Unremarkable. No DVT in the left common femoral, femoral, proximal deep femoral or popliteal veins. The veins demonstrate normal color flow, are normally compressible, with normal phasic flow and/or augmentation response. Left superficial veins: Unremarkable. No thrombus in the visualized left great saphenous vein. Soft tissues: No acute findings. No popliteal cyst. IMPRESSION: Normal bilateral lower extremity duplex venous ultrasound. Electronically signed by: Jimmy Clarke MD 12/15/22 05:28 AM
[2022-12-15] MEDS: CEFEPIME 2,000 MG in SYRINGE 0 ML IV SCH ×2 (05:37→16:51)
[2022-12-15 06:11] LABS: Basophils # (auto) 0.03 K/uL (0-0.2); Basophils % (auto) 0.2 %; Eosinophils # (auto) 0.05 K/uL (0-0.50); Eosinophils % (auto) 0.4 %; Hematocrit (blood only) 38.4 % (37.0-47.0); Hemoglobin 13.2 g/dl (12.0-16.0); Immature Granulocytes # (auto) 0.05 K/uL (0.01-0.20); Immature Granulocytes % (auto) 0.4 %; Lymphocytes % (auto) 9.1 %; Mean Corpuscular Hemoglobin 30.3 pg (25.0-34.0); Mean Corpuscular Hgb Conc 34.4 g/dL (32.0-36.0); Mean Corpuscular Volume 88.1 fL (80.0-100.0); Mean Platelet Volume 9.9 fL (9.4-12.4); Monocytes # (auto) 0.93 K/uL (0.11-0.59); Monocytes % (auto) 7.7 %; Neutrophils % (auto) 82.2 %; Platelet Count 235 K/uL (130-400); Red Blood Count 4.36 M/uL (4.20-5.40); White Blood Count 12.06 K/ul (4.8-10.8)
[2022-12-15 06:22] LABS: BUN Creatinine Ratio 34.3 (10-20); Calcium 8.3 mg/dl (8.6-10.3); Creatinine Clr Calc Pharmacy 68.6 ml/min; Est GFR (African American) 94.2 ml/min; Est GFR (Non-African American) 81.3 ml/min; Potassium 3.6 mmol/L (3.5-5.1)
[2022-12-15] MEDS: ENOXAPARIN INJ 40 MG/0.4 ML SYR SQ SCH (08:04)
--- NOTE | 2022-12-15 08:41 | XRay Report ---
XR chest 1V portable HISTORY: Sepsis COMPARISON: Chest CT 12/14/2022. FINDINGS: No pneumothorax. No pleural effusions. Left basilar linear densities consistent with subseg mental atelectasis. The cardiac silhouette is mildly enlarged. No evidence for pulmonary edema. No ac standing rock fractures identified. IMPRESSION: 1. No acute process within the chest. 2. Mild cardiomegaly. ACT 112: Negative or not required by law. Electronically signed by: Jasmeet Arriaga M.D. 12/15/2022 8:40 AM
[2022-12-15] MEDS ORDERED: lisinopril 5 MG TAB PO SCH (09:00)
[2022-12-15] MEDS: ACETAMINOPHEN 325 MG TAB PO PRN (11:53)
[2022-12-15] MEDS: lisinopril 10 MG TAB PO SCH (12:11)
--- NOTE | 2022-12-15 14:11 | Electrocardiogram Report ---
Test Reason : Blood Pressure : / mmHG Vent. Rate : 102 BPM Atrial Rate : 102 BPM P-R Int : 222 ms QRS Dur : 090 ms QT Int : 354 ms P-R-T Axes : 064 -13 079 degrees QTc Int : 461 ms Sinus tachycardia with 1st degree A-V block with occasional Premature ventricular complexes Otherwise normal ECG When compared with ECG of 18-FEB-2004 13:05, Premature ventricular complexes are now Present WI interval has increased Confirmed by Sarthak Bhat ([id number]) on 12/15/2022 2:11:13 PM Referred By: REFERRED SELF Confirmed By:Sarthak Bhat
--- NOTE | 2022-12-15 15:35 | Communication Note ---
Date of Service: December 15, 2022 82-year-old lady with PMH of HTN, lung cancer status post surgery, chronic leg edema, ovarian cancer status post surgery, ambulatory dysfunction, concern of dementia per family [not officially diagnosed per family] was brought into the ED 12/14 secondary to increasing confusion after a fall 2 days ago [employer]. Per EMS evaluation, She had wounds in the left cheek and blistering redness in other parts of the body; she strongly smelled of urine and was incontinent of stool. She is being managed for the following: Infected wounds of the face x Lt and skin Sepsis POA: At presentation, WBC and heart rate elevated. Lactate WNL. Fall, generalized weakness Patient presents with fall and subsequent wound which got infected Admitting CXR/CT C-spine/CT chest/CT face/CT head/CT abdomen pelvis/BLE venous Doppler with no acute findings Continue with cefepime 12/15 and doxycycline 12/15, WBC trending down, patient afebrile. Follow admitting blood culture Rhabdomyolysis: Secondary to fall/infection. Admitting CPK 4725, downtrending. Status post IV fluids. Encourage p.o. intake of fluid. Repeat CPK in AM. Uncontrolled BP: likely 2/2 current active infection/stress. Continue with home lisinopril, Lasix on hold for now. Will monitor, titrate BP needs as appropriate. If not w/ good PO intake, consider putting back on IVF. Likely NSTEMI type II: Admitting troponin 112, flat trended around 100s. Admitting EKG with sinus tachycardia, no acute ST or T changes noted. Admitting echo with EF of 65%, grade 1 diastolic dysfunction, moderate concentric LVH. No wall motion abnormality noted. Patient with reproducible chest pain. Continue to monitor over telemetry. Other chronic medical conditions: Continue with home meds as and when able. lung cancer status post surgery chronic leg edema as per records, on diuretic Rx ovarian cancer status post surgery Hyperglycemia rule out DM undiagnosed dementia as per family, functional disability DVT prophylaxis: Lovenox subcu Full code PT/OT eval. Likely will need placement. Patient's daughter (Ms. Annie Talley, contact #[phone]) On examination, patient slow to respond/answer, left cheek infected wound noted, BLE erythema/warmth noted. For detailed information on the patient, refer to today's H&P note.
[2022-12-15 18:33] LABS: A calco-baum cmplx NotReported Not Detected (NotDetected); Bact fragilis Not Reported Not Detected (NotDetected); C auris Not Reported Not Detected (NotDetected); Calbicans Not Reported Not Detected (NotDetected); Candida glabrata Not Reported Not Detected (NotDetected); Candida krusei Not Reported Not Detected (NotDetected); Cneoformans/gatti Not Reported Not Detected (NotDetected); Cparapsilosis Not Reported Not Detected (NotDetected); Ctropicalis Not Reported Not Detected (NotDetected); E cloacae compx Not Reported Not Detected (NotDetected); Efaecalis Not Reported Not Detected (NotDetected); Efaecium Not Reported Not Detected (NotDetected); Enterobacterales Not Reported Not Detected (NotDetected); Escherichia coli Not Reported Not Detected (NotDetected); H influenzae Not Reported Not Detected (NotDetected); K aerogenes Not Reported Not Detected (NotDetected); Koxytoca Not Reported Not Detected (NotDetected); Kpneumoniae grp Not Reported Not Detected (NotDetected); Lmonocyt Not Reported Not Detected (NotDetected); N meningitidis Not Reported Not Detected (NotDetected); P aeruginosa Not Reported Not Detected (NotDetected); Proteus spp Not Reported Not Detected (NotDetected); Salmonella spp Not Reported Not Detected (NotDetected); Smarcescens Not Reported Not Detected (NotDetected); Staph lugdunensis Not Reported Not Detected (NotDetected); Staph spp. Not Reported DETECTED (NotDetected); Staphaureus Not Reported Not Detected (NotDetected); Staphepi Not Reported Not Detected (NotDetected); Stenmaltophilia Not Reported Not Detected (NotDetected); Strep agal(GrpB) Not Reported Not Detected (NotDetected); Strep pneum Not Reported Not Detected (NotDetected); Strep pyog (GrpA) Not Reported Not Detected (NotDetected); Strep spp Not Reported Not Detected (NotDetected)
[2022-12-15 18:40] LABS: Staphylococcus spp. DETECTED (NotDetected)
[2022-12-15] MEDS: DOXYCYCLINE HYCLATE 100 MG CAP PO SCH (20:41)
[2022-12-16] MEDS: CEFEPIME 2,000 MG in SYRINGE 0 ML IV SCH ×2 (05:51→18:11)
[2022-12-16] MEDS: ENOXAPARIN INJ 40 MG/0.4 ML SYR SQ SCH (08:39)
[2022-12-16] MEDS: DOXYCYCLINE HYCLATE 100 MG CAP PO SCH ×2 (08:41→21:01)
[2022-12-16] MEDS: lisinopril 10 MG TAB PO SCH (08:41)
[2022-12-16 10:31] LABS: Hematocrit (blood only) 39.2 % (37.0-47.0); Hemoglobin 13.5 g/dl (12.0-16.0); Mean Corpuscular Hemoglobin 29.8 pg (25.0-34.0); Mean Corpuscular Hgb Conc 34.4 g/dL (32.0-36.0); Mean Corpuscular Volume 86.5 fL (80.0-100.0); Mean Platelet Volume 9.8 fL (9.4-12.4); Platelet Count 236 K/uL (130-400); RDW Coefficient of Variation 13.7 % (11.5-14.5); RDW Standard Deviation 43.2 fL (36.4-46.3); Red Blood Count 4.53 M/uL (4.20-5.40); White Blood Count 9.51 K/ul (4.8-10.8)
[2022-12-16 10:47] LABS: BUN Creatinine Ratio 29.1 (10-20); Calcium 8.9 mg/dl (8.6-10.3); Creatinine Clr Calc Pharmacy 85.5 ml/min; Est GFR (African American) 100.5 ml/min; Est GFR (Non-African American) 86.7 ml/min; Magnesium 1.8 mg/dl (1.7-2.4); Phosphorus 2.6 mg/dl (2.5-4.9); Potassium 3.4 mmol/L (3.5-5.1)
[2022-12-16] MEDS: FUROSEMIDE 20 MG TAB PO SCH (11:08)
[2022-12-16] MEDS ORDERED: POTASSIUM CHLORIDE CRTAB 20 MEQ TABCR PO STA ×2 (15:43→23:05)
--- NOTE | 2022-12-16 15:53 | Hospitalist Progress Note ---
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 Per pt's daughter, pt has dementia, she has been refusing help with care lately which she was ok with before. Overall she is declining in her functional status per her dtr. She is being managed for the following: Infected wounds of the face x Lt Sepsis POA:At presentation, WBC and heart rate elevated. Lactate WNL. Fall, generalized weakness Patient presents with fall and subsequent wound which got infected Admitting CXR/CT C-spine/CT chest/CT face/CT head/CT abdomen pelvis/BLE venous D oppler with no acute findings Continue with cefepime 12/15 and doxycycline 12/15, WBC trending down, patient afebrile. Follow admitting blood culture -- 1 of 4 bottle +ve; likely contaminant but awaiting repeat 12/15 bl cx and finalization of first culture. Advance diet as tolerated Rhabdomyolysis:Secondary to fall/infection. Admitting CPK 4725, downtrending. Status post IV fluids. Encourage p.o. intake of fluid. Uncontrolled BP:likely 2/2 current active infection/stress. Continue with home lisinopril & Lasix. Will monitor, titrate BP needs as appropriate. Likely NSTEMI type II:Admitting troponin 112, flat trended around 100s. Admitting EKG with sinus tachycardia, no acute ST or T changes noted. Admitting echo with EF of 65%, grade 1 diastolic dysfunction, moderate concentric LVH. No wall motion abnormality noted. Patient with reproducible chest pain. Continue to monitor ov for er telemetry. Other chronic medical conditions:Continue with home meds as and when able. lung cancer status post surgery chronic leg edema as per records, on diuretic Rx ovarian cancer status post surgery Hyperglycemia rule out DM undiagnosed dementia as per family, functional disability DVT prophylaxis: Lovenox subcu Full code PT/OT eval. Likely will need placement. Patient's daughter (Ms. Annie Talley, contact #[phone]); updated 12/16. Admission and Anticipated Discharge Date Admission Date: December 15, 2022 Subjective Patient seen and examined at bedside as a follow-up of infected wounds of the left face and sepsis POA, fall/generalized weakness, rhabdomyolysis, uncontrolled BP, likely NSTEMI type II. Patient was lying in bed, on room air, NAD, reports feeling better today, reports improvement in her generalized body pain today, reports eating dinner yesterday but skipped breakfast today, denies any headache or dizziness or fever or chest pain. Physical Exam Physical Exam: GENERAL: Alert and not oriented. NAD, on RA. pleasant, demented. HEENT: No pallor, no icterus. Pupils equal, round and reactive to light. Oral mucosa moist. Left cheek crusted/infected wound, decreasing erythema. NECK: No JVD, no neck masses. HEART: S1 and S2 heard. Regular rate and rhythm. No murmur, no gallop. RESPIRATORY SYSTEM: Normal AP diameter. No accessory muscle use. No wheezing, no crackles. ABDOMEN: Soft, bowel sounds present, nontender, no distention. CENTRAL NERVOUS SYSTEM: No facial droop. Speech is clear. Obeys simple commands. Moves extremities. EXTREMITIES: No edema, BLE erythema improving. Results & Data Results & Data Vital Signs (Past 12 Hours) Vital Signs Temp Pulse Pulse Resp BP BP Pulse Ox 12/16/22 11:57 36.6 C 97 H 16 155/102 H 18 L 12/16/22 07:57 36.9 C 84 18 195/113 H 93 12/16/22 07:26 65 O2 Del Method 12/16/22 11:57 Room Air 12/16/22 07:57 Room Air 12/16/22 07:26
[2022-12-16] MEDS ORDERED: METOPROLOL TARTRATE 1 MG/ML VIAL IV STA (22:56)
[2022-12-16] MEDS ORDERED: MAGNESIUM SULFATE / D5W 1 GM/100 ML BAG IV ONE (22:56)
[2022-12-17] MEDS: ACETAMINOPHEN 325 MG TAB PO PRN (04:07)
[2022-12-17] MEDS: CEFEPIME 2,000 MG in SYRINGE 0 ML IV SCH ×2 (04:08→16:36)
[2022-12-17 08:04] LABS: Hematocrit (blood only) 39.6 % (37.0-47.0); Hemoglobin 13.4 g/dl (12.0-16.0); Mean Corpuscular Hemoglobin 30.1 pg (25.0-34.0); Mean Corpuscular Hgb Conc 33.8 g/dL (32.0-36.0); Mean Platelet Volume 9.9 fL (9.4-12.4); Platelet Count 249 K/uL (130-400); RDW Coefficient of Variation 13.8 % (11.5-14.5); RDW Standard Deviation 44.6 fL (36.4-46.3); Red Blood Count 4.45 M/uL (4.20-5.40); White Blood Count 8.78 K/ul (4.8-10.8)
[2022-12-17 08:27] LABS: BUN Creatinine Ratio 41.8 (10-20); Calcium 9.1 mg/dl (8.6-10.3); Creatinine Clr Calc Pharmacy 84.1 ml/min; Est GFR (African American) 100.5 ml/min; Est GFR (Non-African American) 86.7 ml/min; Magnesium 2.1 mg/dl (1.7-2.4); Phosphorus 2.9 mg/dl (2.5-4.9); Potassium 3.7 mmol/L (3.5-5.1)
[2022-12-17] MEDS: DOXYCYCLINE HYCLATE 100 MG CAP PO SCH ×2 (08:49→20:02)
[2022-12-17] MEDS: ENOXAPARIN INJ 40 MG/0.4 ML SYR SQ SCH (08:50)
[2022-12-17] MEDS: lisinopril 10 MG TAB PO SCH (08:50)
[2022-12-17] MEDS: FUROSEMIDE 20 MG TAB PO SCH (08:50)
[2022-12-17] MEDS ORDERED: POTASSIUM CHLORIDE CRTAB 20 MEQ TABCR PO SCH (09:00)
--- NOTE | 2022-12-17 16:47 | Hospitalist Progress Note ---
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 Per EMS evaluation, She had wounds in the left cheek and blistering redness in other parts of the body; she strongly smelled of urine and was incontinent of stool. Per pt's daughter, pt has dementia, she has been refusing help with care lately which she was ok with before. Overall she is declining in her functional status per her dtr. She is being managed for the following: Infected wounds of the face x Lt Sepsis POA:At presentation, WBC and heart rate elevated. Lactate WNL. Fall, generalized weakness Patient presents with fall and subsequent wound which got infected Admitting CXR/CT C-spine/CT chest/CT face/CT head/CT abdomen pelvis/BLE venous D oppler with no acute findings Continue with cefepime 12/15 and doxycycline 12/15, WBC trending down, patient afebrile. De-escalate once 12/14 blood culture finalize. Follow admitting blood culture -- 1 of 4 bottle +ve; likely contaminant but awaiting repeat 12/15 bl cx and finalization of first culture. Advance diet as tolerated Body injury not consistent with fall: bruise/blister over b/l inner thighs and genitalia; bruise under rt breast and over left breast. Over left face - crusted wound. Wound care on baord. [facility] notified. Rhabdomyolysis:Secondary to fall/infection. Admitting CPK 4725, downtrending. Status post IV fluids. Encourage p.o. intake of fluid. Uncontrolled BP:likely 2/2 current active infection/stress. Continue with home lisinopril & Lasix. Will monitor, titrate BP needs as appropriate. Likely NSTEMI type II:Admitting troponin 112, flat trended around 100s. Adm itting EKG with sinus tachycardia, no acute ST or T changes noted. Admitting echo with EF of 65%, grade 1 diastolic dysfunction, moderate concentric LVH. No wall motion abnormality noted. Patient with reproducible chest pain. Continue to monitor ov for er telemetry. Other chronic medical conditions:Continue with home meds as and when able. lung cancer status post surgery chronic leg edema as per records, on diuretic Rx ovarian cancer status post surgery Hyperglycemia rule out DM undiagnosed dementia as per family, functional disability DVT prophylaxis: Lovenox subcu Full code PT/OT eval. Likely will need placement. Patient's daughter (Ms. Annie Talley, contact #[phone]); updated 12/16. CM assisting w/ dc plan, appreciate. Admission and Anticipated Discharge Date Admission Date: December 15, 2022 Subjective Patient seen and examined at bedside as a follow-up of infected wounds of the left face and sepsis POA, fall/generalized weakness, rhabdomyolysis, uncontrolled BP, likely NSTEMI type II. Patient was lying in bed, on room air, NAD, reports feeling better today, reports improvement in her generalized body pain today, per RN patient is eating okay and moving bowels okay. Patient denies any headache or dizziness or fever or chest pain. Patient was examined completely with the nurse at bedside. Patient has bruise and blister over the inner thigh and genitalia area, also has bruise underneath right breast and over left breast. This does not seem consistent with fall that patient claims. Patient does seem reserved during discussion about these lesions. Office of aging notified by CM, will follow. Physical Exam Physical Exam: GENERAL: Alert and not oriented. NAD, on RA. pleasant, demented. HEENT: No pallor, no icterus. Pupils equal, round and reactive to light. Oral mucosa moist. Left cheek crusted/infected wound, decreasing erythema. NECK: No JVD, no neck masses. HEART: S1 and S2 heard. Regular rate and rhythm. No murmur, no gallop. RESPIRATORY SYSTEM: Normal AP diameter. No accessory muscle use. No wheezing, no crackles. ABDOMEN: Soft, bowel sounds present, nontender, no distention. CENTRAL NERVOUS SYSTEM: No facial droop. Speech is clear. Obeys simple commands. Moves extremities. Skin: bruise/ruptered blisters over b/l inner thigh and genitalia, bruise under Rt breast and over left breast. Lt face w/ crusted/infected wound. Results & Data Results & Data Vital Signs (Past 12 Hours) Vital Signs Temp Pulse Pulse Resp BP BP Pulse Ox 12/17/22 16:02 73 07/17/23 15:20 36.4 C 73 20 149/80 H 96 12/17/22 11:35 36.5 C 101 H 20 161/94 H 95 12/17/22 07:00 60 12/17/22 08:49 143/80 H 12/17/22 08:02 36.3 C L 88 20 174/106 H 93 O2 Del Method 12/17/22 16:02 12/17/22 15:20 Room Air 12/17/22 11:35 Room Air 12/17/22 07:00 12/17/22 08:49 12/17/22 08:02 Room Air
[2022-12-17] MEDS: BACITRACIN OINT 15 GM TUBE EXT SCH (20:02)
[2022-12-18] MEDS: CEFEPIME 2,000 MG in SYRINGE 0 ML IV SCH ×2 (04:48→17:51)
[2022-12-18] MEDS: ACETAMINOPHEN 325 MG TAB PO PRN ×2 (05:59→17:57)
[2022-12-18 06:18] LABS: Hematocrit (blood only) 39.2 % (37.0-47.0); Mean Corpuscular Hemoglobin 29.8 pg (25.0-34.0); Mean Corpuscular Hgb Conc 33.2 g/dL (32.0-36.0); Mean Corpuscular Volume 89.9 fL (80.0-100.0); Mean Platelet Volume 9.9 fL (9.4-12.4); Platelet Count 238 K/uL (130-400); RDW Coefficient of Variation 13.9 % (11.5-14.5); RDW Standard Deviation 45.7 fL (36.4-46.3); Red Blood Count 4.36 M/uL (4.20-5.40); White Blood Count 8.39 K/ul (4.8-10.8)
[2022-12-18 06:31] LABS: Calcium 8.9 mg/dl (8.6-10.3); Magnesium 1.9 mg/dl (1.7-2.4); Potassium 3.7 mmol/L (3.5-5.1)
[2022-12-18 06:37] LABS: BUN Creatinine Ratio 44.8 (10-20); Creatinine Clr Calc Pharmacy 80.7 ml/min; Est GFR (African American) 98.8 ml/min; Est GFR (Non-African American) 85.2 ml/min; Phosphorus 2.8 mg/dl (2.5-4.9)
[2022-12-18] MEDS: amLODIPine BESYLATE 5 MG TAB PO SCH (08:49)
[2022-12-18] MEDS: BACITRACIN OINT 15 GM TUBE EXT SCH ×2 (08:50→20:02)
[2022-12-18] MEDS: DOXYCYCLINE HYCLATE 100 MG CAP PO SCH ×2 (08:50→20:02)
[2022-12-18] MEDS: ENOXAPARIN INJ 40 MG/0.4 ML SYR SQ SCH (08:51)
[2022-12-18] MEDS: lisinopril 10 MG TAB PO SCH (08:51)
[2022-12-18] MEDS: FUROSEMIDE 20 MG TAB PO SCH (08:51)
--- NOTE | 2022-12-18 14:12 | Hospitalist Progress Note ---
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 Per pt's daughter, pt has dementia, she has been refusing help with care lately which she was ok with before. Overall she is declining in her functional status per her dtr. She is being managed for the following: Infected wounds of the face x Lt Sepsis POA:At presentation, WBC and heart rate elevated. Lactate WNL. Fall, generalized weakness Patient presents with fall and subsequent wound which got infected Admitting CXR/CT C-spine/CT chest/CT face/CT head/CT abdomen pelvis/BLE venous D oppler with no acute findings Continue with cefepime 12/15 and doxycycline 12/15, WBC trending down, patient afebrile. Follow admitting blood culture -- 1 of 4 bottle +ve; likely contaminant but awaiting repeat 12/15 bl cx and finalization of first culture. Wound care on board, appreciate recs. Body injury not consistent with fall: bruise/blister over b/l inner thighs and genitalia; bruise under rt breast and over left breast. Over left face - crusted wound. Wound care on baord. [facility] notified. Rhabdomyolysis:Secondary to fall/infection. Admitting CPK 4725, downtrending. Status post IV fluids. Encourage p.o. intake of fluid. Uncontrolled BP:likely 2/2 current active infection/stress. Continue with home lisinopril & Lasix. Will monitor, titrate BP needs as appropriate/amlod added. Likely NSTEMI type II:Admitting troponin 112, flat trended around 100s. Admitting EKG with sinus tachycardia, no acute ST or T changes noted. Admitting echo with EF of 65%, grade 1 diastolic dysfunction, moderate concentric LVH. No wall motion abnormality noted. Patient with reproducible chest pain. Continue to monitor ov for er telemetry. Other chronic medical conditions:Continue with home meds as and when able. lung cancer status post surgery chronic leg edema as per records, on diuretic Rx ovarian cancer status post surgery Hyperglycemia rule out DM undiagnosed dementia as per family, functional disability DVT prophylaxis: Lovenox subcu Full code PT/OT eval. Likely will need placement. Patient's daughter (Ms. Annie Talley, contact #[phone]); updated 12/16. CM assisting w/ dc plan. Admission and Anticipated Discharge Date Admission Date: December 15, 2022 Subjective Patient seen and examined at bedside as a follow-up of infected wounds of the left face and sepsis POA, fall/generalized weakness, rhabdomyolysis, uncontrolled BP, likely NSTEMI type II. Patient was lying in bed, on room air, NAD, reports feeling better, reports improvement in her generalized body pain, per RN patient is eating okay and moving bowels okay. Patient denies any headache or dizziness or fever or chest pain. Office of Aging following. Physical Exam Physical Exam: GENERAL: Alert and not oriented. NAD, on RA. pleasant, demented. HEENT: No pallor, no icterus. Pupils equal, round and reactive to light. Oral mucosa moist. Left cheek crusted/infected wound, decreasing erythema. NECK: No JVD, no neck masses. HEART: S1 and S2 heard. Regular rate and rhythm. No murmur, no gallop. RESPIRATORY SYSTEM: Normal AP diameter. No accessory muscle use. No wheezing, no crackles. ABDOMEN: Soft, bowel sounds present, nontender, no distention. CENTRAL NERVOUS SYSTEM: No facial droop. Speech is clear. Obeys simple commands. Moves extremities. Skin: bruise/ruptered blisters over b/l inner thigh and genitalia, bruise under Rt breast and over left breast. Lt face w/ crusted/infected wound. Results & Data Results & Data Vital Signs (Past 12 Hours) Vital Signs Temp Pulse Pulse Resp BP BP Pulse Ox 12/18/22 11:00 36.3 C L 90 18 121/77 95 12/18/22 07:29 36.8 C 67 18 162/87 H 96 12/18/22 07:17 61 12/18/22 04:06 36.6 C 55 L 18 158/86 H 95 O2 Del Method 12/18/22 11:00 Room Air 12/18/22 07:29 Room Air 12/18/22 07:17 12/18/22 04:06 Room Air
[2022-12-19] MEDS: ACETAMINOPHEN 325 MG TAB PO PRN (03:49)
[2022-12-19] MEDS: CEFEPIME 2,000 MG in SYRINGE 0 ML IV SCH ×2 (04:11→16:38)
[2022-12-19] MEDS: BACITRACIN OINT 15 GM TUBE EXT SCH ×2 (08:45→20:25)
[2022-12-19] MEDS: DOXYCYCLINE HYCLATE 100 MG CAP PO SCH ×2 (08:45→20:25)
[2022-12-19] MEDS: amLODIPine BESYLATE 5 MG TAB PO SCH (08:46)
[2022-12-19] MEDS: FUROSEMIDE 20 MG TAB PO SCH (08:46)
[2022-12-19] MEDS: ENOXAPARIN INJ 40 MG/0.4 ML SYR SQ SCH (08:47)
[2022-12-19] MEDS: lisinopril 10 MG TAB PO SCH (08:47)
[2022-12-19 09:13] LABS: BUN Creatinine Ratio 39.3 (10-20); Calcium 9.1 mg/dl (8.6-10.3); Est GFR (African American) 99.9 ml/min; Est GFR (Non-African American) 86.2 ml/min; Phosphorus 2.6 mg/dl (2.5-4.9); Potassium 3.6 mmol/L (3.5-5.1)
--- NOTE | 2022-12-19 15:43 | Hospitalist Progress Note ---
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 Per EMS evaluation, She had wounds in the left cheek and blistering redness in other p arts of the body; she strongly smelled of urine and was incontinent of stool. Per pt's daughter, pt has dementia, she has been refusing help with care lately which she was ok with before. Overall she is declining in her functional status per her dtr. She is being managed for the following: Infected wounds of the face x Lt Sepsis POA:At presentation, WBC and heart rate elevated. Lactate WNL. Fall, generalized weakness Patient presents with fall and subsequent wound which got infected Admitting CXR/CT C-spine/CT chest/CT face/CT head/CT abdomen pelvis/BLE venous Doppler with no acute findings Continue with cefepime 12/15 and doxycycline 12/15, WBC trending down, patient afebrile. Follow admitting blood culture -- 1 of 4 bottle +ve; likely contaminant (coag negat staph) but awaiting repeat 12/15 bl cx and finalization of first culture. Wound care on board, appreciate recs. Body injury not consistent with fall: bruise/blister over b/l inner thighs and genitalia; bruise under rt breast and over left breast. Over left face - crusted wound. Wound care on baord. [facility] notified. Rhabdomyolysis:Secondary to fall/infection. Admitting CPK 4725, downtrending. Status post IV fluids. Encourage p.o. intake of fluid. Uncontrolled BP:likely 2/2 current active infection/stress. Continue with home lisinopril & Lasix. Will monitor, titrate BP needs as appropriate/amlod added. Likely NSTEMI type II:Admitting troponin 112, flat trended around 100s. Admitting EKG with sinus tachycardia, no acute ST or T changes noted. Admitting echo with EF of 65%, grade 1 diastolic dysfunction, moderate concentric LVH. No wall motion abnormality noted. Patient with reproducible chest pain. Continue to monitor ov for er telemetry. Other chronic medical conditions:Continue with home meds as and when able. lung cancer status post surgery chronic leg edema as per records, on diuretic Rx ovarian cancer status post surgery Hyperglycemia rule out DM undiagnosed dementia as per family, functional disability DVT prophylaxis: Lovenox subcu Full code PT/OT eval. Likely will need placement. Patient's daughter (Ms. Annie Talley, contact #[phone]); updated 12/16. CM assisting w/ dc plan. Admission and Anticipated Discharge Date Admission Date: December 15, 2022 Subjective Patient seen and examined at bedside as a follow-up of infected wounds of the left face and sepsis POA, fall/generalized weakness, rhabdomyolysis, uncontrolled BP, likely NSTEMI type II. Patient was lying in bed, on room air, NAD Patient denies any headache or dizziness, denies fever or chest pain, or shortness of breath. She states that she is in the hospital, however at first she thinks she is in [place], then she corrects herself and says [place]. She tells me it is December but could not tell me the year right away. She tells me no complaints. Office of Aging following. Review of Systems Review of Systems: All systems reviewed & are unremarkable except as noted in Subjective Physical Exam Physical Exam: GENERAL: WD/WN F in NAD, on RA. pleasant, demented. HEENT: NC/AT. No pallor, no icterus. Pupils equal, round and reactive to light. Oral mucosa moist. Left cheek crusted/infected wound, decreasing erythema. NECK: No JVD, no neck masses. HEART: S1 and S2 heard. Regular rate and rhythm. No murmur, no gallop. RESPIRATORY: Normal AP diameter. No accessory muscle use. No wheezing, no crackles. ABDOMEN: Soft, bowel sounds present, nontender, no distention. NEURO:Awake and answers some questions appropriately. Flat affect. Speech is clear but slow.Does not answer all orientation questions correctly at first. Obeys simple commands. Moves extremities. Skin: bruise/ruptered blisters over b/l inner thigh and genitalia, bruise under Rt breast and over left breast. Lt face w/ crusted/infected wound. Results & Data Results & Data Vital Signs (Past 12 Hours) Vital Signs Temp Pulse Pulse Resp BP Pulse Ox O2 Del Method 12/19/22 15:22 36.4 C L 82 20 147/76 H 96 Room Air 12/19/22 11:15 36.6 C 74 18 154/83 H 95 Room Air 12/19/22 07:00 63 12/19/22 07:58 36.5 C 64 16 183/87 H 95 Room Air Laboratory Results 12/19/22 Range/Units 08:44 Sodium 136 (136-145) mmol/L Potassium 3.6 (3.5-5.1) mmol/L Chloride 103 (98-107) mmol/L Carbon Dioxide 27 (21-32) mmol/L Anion Gap 6 (3-11) BUN 22 (6-23) mg/dl Creatinine 0.56 L (0.6-1.2) mg/dl Est Cr Clr Drug Dosing 83.0 ml/min Est GFR ( Amer) 99.9 ml/min Est GFR (Non-Af Amer) 86.2 ml/min BUN/Creatinine Ratio 39.3 H (10-20) Glucose 122 H (70-99(Fasting)) mg/dl Calcium 9.1 (8.6-10.3) mg/dl Phosphorus 2.6 (2.5-4.9) mg/dl Magnesium 2.0 (1.7-2.4) mg/dl Medications Administered Current Inpatient Medications Acetaminophen (Acetaminophen 325 Mg Tab) 650 mg PO Q4H PRN PRN Reason: Pain or Fever Stop: 01/14/23 03:44 Last Admin: 12/19/22 03:49 Dose: 650 mg Amlodipine Besylate (Amlodipine Besylate 5 Mg Tab) 2.5 mg PO QAM [place]H[facility] Stop: 01/17/23 08:59 Last Admin: 12/19/22 08:46 Dose: 2.5 mg Bacitracin (Bacitracin Oint 15 Gm Tube) 1 appln EXT BID ELHAM Stop: 01/16/23 20:59 Last Admin: 12/19/22 08:45 Dose: 1 appln Doxycycline Hyclate (Doxycycline Hyclate 100 Mg Cap) 100 mg PO BID [facility] Stop: 12/22/22 20:59 Last Admin: 12/19/22 08:45 Dose: 100 mg Enoxaparin Sodium (Enoxaparin Inj 40 Mg/0.4 Ml Syr) 40 mg SQ QAM [place] Stop: 01/14/23 08:59 Last Admin: 12/19/22 08:47 Dose: 40 mg Furosemide (Furosemide 20 Mg Tab) [facility] [place] Stop: 01/15/23 09:59 Last Admin: 12/19/22 08:46 Dose: 20 mg Cefepime HCl 2,000 mg/ Syringe 20 mls @ 5 mls/min IV Q12H [facility]; Protocol Stop: 12/22/22 04:59 Last Admin: 12/19/22 04:11 Dose: 5 mls/min Lisinopril (Lisinopril 10 Mg Tab) 10 [facility] [place] Stop: 01/14/23 08:59 Last Admin: 12/19/22 08:47 Dose: 10 mg
[2022-12-19] MEDS: DOCUSATE SODIUM 100 MG CAP PO SCH (16:32)
[2022-12-19] MEDS: ADVANCED PROBIOTIC 1250 MG CAPSULE PO SCH (16:32)
[2022-12-20] MEDS: CEFEPIME 2,000 MG in SYRINGE 0 ML IV SCH (05:23)
[2022-12-20] MEDS: amLODIPine BESYLATE 5 MG TAB PO SCH (07:37)
[2022-12-20] MEDS: DOXYCYCLINE HYCLATE 100 MG CAP PO SCH ×2 (07:37→21:40)
[2022-12-20] MEDS: ADVANCED PROBIOTIC 1250 MG CAPSULE PO SCH (07:38)
[2022-12-20] MEDS: FUROSEMIDE 20 MG TAB PO SCH (07:38)
[2022-12-20] MEDS: lisinopril 10 MG TAB PO SCH (07:38)
[2022-12-20] MEDS: DOCUSATE SODIUM 100 MG CAP PO SCH ×2 (07:39→21:40)
[2022-12-20] MEDS: BACITRACIN OINT 15 GM TUBE EXT SCH ×2 (07:39→21:40)
[2022-12-20] MEDS: ENOXAPARIN INJ 40 MG/0.4 ML SYR SQ SCH (07:39)
--- NOTE | 2022-12-20 11:13 | XRay Report ---
XR chest 1V portable CLINICAL HISTORY: cough, after eating TECHNIQUE: Single frontal radiograph of the chest was obtained. Comparison: Comparison is made to chest radiograph 12/14/2022 FINDINGS: No lines and tubes are seen. Cardiomegaly is noted. The aortic arch is calcified. The lungs are clear . No evidence of pleural effusion or pneumothorax. IMPRESSION: No acute abnormalities and in particular no radiographic evidence of pneumonia or aspiration. ACT 112: Negative or not required by law. Electronically signed by: Yonny Reinoso M.D. 12/20/2022 11:12 AM
[2022-12-20] MEDS: cephALEXin 500 MG CAP PO SCH ×2 (16:21→21:40)
--- NOTE | 2022-12-20 16:43 | Hospitalist Progress Note ---
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 Per pt's daughter, pt has dementia, she has been refusing help with care lately which she was ok with before. Overall she is declining in her functional status per her dtr. She is being managed for the following: Infected wounds of the face x Lt Sepsis POA:At presentation, WBC and heart rate elevated. Lactate WNL. Fall, generalized weakness Patient presents with fall and subsequent wound which got infected Admitting CXR/CT C-spine/CT chest/CT face/CT head/CT abdomen pelvis/BLE venous Doppler with no acute findings Continue with cefepime 12/15 and doxycycline 12/15, WBC trending down, patient afebrile. Follow admitting blood culture -- 1 of 4 bottle +ve; likely contaminant (coag negat staph) but awaiting repeat 12/15 bl cx and finalization of first culture. Wound care on board, appreciate recs. Body injury not consistent with fall: bruise/blister over b/l inner thighs and genitalia; bruise under rt breast and over left breast. Over left face - crusted wound. Wound care on baord. [facility] notified. Rhabdomyolysis:Secondary to fall/infection. Admitting CPK 4725, downtrending. Status post IV fluids. Encourage p.o. intake of fluid. Uncontrolled BP:likely 2/2 current active infection/stress. Continue with home lisinopril & Lasix. Will monitor, titrate BP needs as appropriate/amlodipine was added. Likely NSTEMI type II:Admitting troponin 112, flat trended around 100s. Admitting EKG with sinus tachycardia, no acute ST or T changes noted. Admitting echo with EF of 65%, grade 1 diastolic dysfunction, moderate concentric LVH. No wall motion abnormality noted. Patient with reproducible chest pain. Continue to monitor ov for er telemetry. Cough w/ eating noted today (12/20) CXR obtained and negative - personally reviewed Speech eval obtained Other chronic medical conditions:Continue with home meds as and when able. lung cancer status post surgery chronic leg edema as per records, on diuretic Rx ovarian cancer status post surgery Hyperglycemia rule out DM undiagnosed dementia as per family, functional disability DVT prophylaxis: Lovenox subcu Full code PT/OT eval. [facility] CM assisting w/ dc plan. Patient's daughter (Ms. Annie Talley, contact #[phone]) Admission and Anticipated Discharge Date Admission Date: December 15, 2022 Subjective Patient seen and examined at bedside as a follow-up of infected wounds of the left face and sepsis POA, fall/generalized weakness, rhabdomyolysis, uncontrolled BP, likely NSTEMI type II. Patient was lying in bed, on room air, NAD however upset - saying she heard her was not doing well and that her daughter was coming to the hospital. Patient denies any headache or dizziness, denies fever or chest pain, or shortness of breath. Office [facility] A[facility] following. Update: Notified by RN later that she was coughing after having breakfast - CXR obtained and speech eval obtained as well Review of Systems Review of Systems: All systems reviewed & are unremarkable except as noted in Subjective Physical Exam Physical Exam: GENERAL: WD/WN F in NAD, on RA HEENT: NC/AT. No pallor, no icterus. Pupils equal, round and reactive to light. Oral mucosa moist. Left cheek crusted/infected wound, decreasing erythema. NECK: No JVD, no neck masses. HEART: S1 and S2 heard. Regular rate and rhythm. No murmur, no gallop. RESPIRATORY: Normal AP diameter. No accessory muscle use. No wheezing, no crackles. ABDOMEN: Soft, bowel sounds present, nontender, no distention. NEURO:Awake and answers some questions appropriately. Today she is upset as she heard her was not doing well. Flat affect. Speech is clear. Obeys simple commands. Moves extremities. Skin: bruise/ruptered blisters over b/l inner thigh and genitalia, bruise under Rt breast and over left breast. Lt face w/ crusted/infected wound. Results & Data Results & Data Vital Signs (Past 12 Hours) Vital Signs Temp Pulse Pulse Resp BP BP Pulse Ox 12/20/22 15:08 98 H 12/20/22 15:00 36.4 C L 91 H 20 133/76 94 12/20/22 10:56 36.4 C L 111 H 20 123/77 95 12/20/22 09:35 145/92 H 12/20/22 09:04 69 12/20/22 07:31 36.5 C 72 18 196/94 H 192/94 H 94 O2 Del Method 12/20/22 15:08 12/20/22 15:00 Room Air 12/20/22 10:56 Room Air 12/20/22 09:35 12/20/22 09:04 12/20/22 07:31 Room Air Medications Administered Current Inpatient Medications Acetaminophen (Acetaminophen 325 Mg Tab) 650 mg PO Q4H PRN PRN Reason: Pain or Fever Stop: 01/14/23 03:44 Last Admin: 12/19/22 03:49 Dose: 650 mg Amlodipine Besylate (Amlodipine Besylate 5 Mg Tab) 2.5 mg PO QAM [facility] Stop: 01/17/23 08:59 Last Admin: 12/20/22 07:37 Dose: 2.5 mg Bacitracin (Bacitracin Oint 15 Gm Tube) 1 appln EXT BID [facility] Stop: 01/16/23 20:59 Last Admin: 12/20/22 07:39 Dose: 1 appln Cephalexin HCl (Cephalexin 500 Mg Cap) 500 mg PO QID [facility]; Protocol Stop: 12/27/22 16:59 Last Admin: 12/20/22 16:21 Dose: 500 mg Docusate Sodium (Docusate Sodium 100 Mg Cap) 100 mg PO BID [facility] Stop: 01/18/23 15:59 Last Admin: 12/20/22 07:39 Dose: 100 mg Doxycycline Hyclate (Doxycycline Hyclate 100 Mg Cap) 100 mg PO BID [facility] Stop: 12/27/22 20:59 Last Admin: 12/20/22 07:37 Dose: 100 mg Enoxaparin Sodium (Enoxaparin Inj 40 Mg/0.4 Ml Syr) 40 mg SQ QAM [facility] Stop: 01/14/23 08:59 Last Admin: 12/20/22 07:39 Dose: 40 mg Furosemide (Furosemide 20 Mg Tab) 20 mg PO QAM [facility] Stop: 01/15/23 09:59 Last Admin: 12/20/22 07:38 Dose: 20 mg Lactobacillus Acidophilus (Advanced Probiotic 1250 Mg Capsule) 2 cap PO DAILY [facility] Stop: 01/18/23 15:59 Last Admin: 12/20/22 07:38 Dose: 2 cap Lisinopril (Lisinopril 10 Mg Tab) [facility] [place] [facility] [place]: 01/14/23 08:59 Last Admin: 12/20/22 07:38 Dose: 10 mg
--- NOTE | 2022-12-20 19:34 | Fluoroscopy Report ---
MODIFIED BARIUM SWALLOW CLINICAL HISTORY: r/o aspiration COMPARISON STUDY: None. FLUOROSCOPY TIME: 2.21 minutes. Ka, r: 17.5 mGy. TECHNIQUE: A modified barium swallow was performed in conjunction with Speech Pathology. The patient ingested varying consistencies of barium containing material. Video fluoroscopy was performed. FINDINGS: No tracheal aspiration was identified with thin liquids by spoon or cup. There was penetrat ion with sequential swallows of thin liquids without aspiration. There was no aspiration with nectar thick liquids, pudding or cracker consistencies. Epiglottic inversion was normal. Laryngeal elevation was normal. IMPRESSION: 1. No tracheal aspiration identified. 2. Full recommendations by Speech pathology to follow. ACT 112: Negative or not required by law. Electronically signed by: Brice Sen M.D. 12/20/2022 7:32 PM
[2022-12-21 07:01] LABS: Creatinine Clr Calc Pharmacy 83.5 ml/min; Est GFR (African American) 99.9 ml/min; Est GFR (Non-African American) 86.2 ml/min
[2022-12-21] MEDS: DOCUSATE SODIUM 100 MG CAP PO SCH ×2 (08:35→20:23)
[2022-12-21] MEDS: FUROSEMIDE 20 MG TAB PO SCH (08:35)
[2022-12-21] MEDS: cephALEXin 500 MG CAP PO SCH ×4 (08:35→20:23)
[2022-12-21] MEDS: DOXYCYCLINE HYCLATE 100 MG CAP PO SCH ×2 (08:35→20:23)
[2022-12-21] MEDS: ENOXAPARIN INJ 40 MG/0.4 ML SYR SQ SCH (08:36)
[2022-12-21] MEDS: BACITRACIN OINT 15 GM TUBE EXT SCH ×2 (08:36→20:23)
[2022-12-21] MEDS: amLODIPine BESYLATE 5 MG TAB PO SCH (08:36)
[2022-12-21] MEDS: ADVANCED PROBIOTIC 1250 MG CAPSULE PO SCH (08:36)
[2022-12-21] MEDS: lisinopril 10 MG TAB PO SCH (08:36)
[2022-12-21] MEDS: guaiFENesin 600 MG TABCR PO SCH ×2 (10:37→20:23)
--- NOTE | 2022-12-21 10:42 | XRay Report ---
XR chest 1V portable CLINICAL HISTORY: cough, + sputum, hyun. after eating COMPARISON STUDY: Chest CT December 14, 2022. Chest radiograph December 20, 2022. FINDINGS: There is no pneumothorax or pleural effusion. There is no consolidation to suggest pneumoni a. Cardiomegaly is again noted. There has been no significant change in appearance of the chest. IMPRESSION: No acute cardiopulmonary findings. ACT 112: Negative or not required by law. Electronically signed by: Brice Sen M.D. 12/21/2022 10:41 AM
--- NOTE | 2022-12-21 18:30 | Hospitalist Progress Note ---
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 Per pt's daughter, pt has dementia, she has been refusing help with care lately which she was ok with before. Overall she is declining in her functional status per her dtr. She is being managed for the following: Infected wounds of the face x Lt Sepsis POA:At presentation, WBC and heart rate elevated. Lactate WNL. Fall, generalized weakness Patient presents with fall and subsequent wound which got infected Admitting CXR/CT C-spine/CT chest/CT face/CT head/CT abdomen pelvis/BLE venous Doppler with no acute findings Continue with cefepime 12/15 and doxycycline 12/15, WBC trending down, patient afebrile. Follow admitting blood culture -- 1 of 4 bottle +ve; likely contaminant (coag negat staph) but awaiting repeat 12/15 bl cx and finalization of first culture. Wound care on board, appreciate recs. Body injury not consistent with fall: bruise/blister over b/l inner thighs and genitalia; bruise under rt breast and over left breast. Over left face - crusted wound. Wound care on baord. [facility]AA notified. Rhabdomyolysis:Secondary to fall/infection. Admitting CPK 4725, downtrending. Status post IV fluids. Encourage p.o. intake of fluid. Uncontrolled BP:likely 2/2 current active infection/stress. Continue with home lisinopril & Lasix. Will monitor, titrate BP needs as appropriate/amlodipine was added. Likely NSTEMI type II:Admitting troponin 112, flat trended around 100s. Admitting EKG with sinus tachycardia, no acute ST or T changes noted. Admitting echo with EF of 65%, grade 1 diastolic dysfunction, moderate concentric LVH. No wall motion abnormality noted. Patient with reproducible chest pain. Continue to monitor ov for er telemetry. Cough w/ eating noted (12/20) CXR obtained (12/20) and negative - personally reviewed Speech eval obtained - no aspiration Continues to have a cough but seems improved - CXR repeated today (12/21) as pt is poor historian CXR remains unremarkable Other chronic medical conditions:Continue with home meds as and when able. lung cancer status post surgery chronic leg edema as per records, on diuretic Rx ovarian cancer status post surgery Hyperglycemia rule out DM undiagnosed dementia as per family, functional disability DVT prophylaxis: Lovenox subcu Full code PT/OT eval. [facility]. CM assisting w/ dc plan. Patient's daughter (Ms. Annie Talley, contact #[phone]) Admission and Anticipated Discharge Date Admission Date: December 15, 2022 Subjective Patient seen and examined at bedside as a follow-up of infected wounds of the left face and sepsis POA, fall/generalized weakness, rhabdomyolysis, uncontrolled BP, likely NSTEMI type II. Patient is sitting up in bed, on room air, NAD Patient denies any headache or dizziness, denies fever or chest pain, or shortness of breath. She has cough, and CXR obtained yesterday was negative. Pt is a poor historian. Yesterday concern for aspiration - CXR repeated today Office of Aging following. Review of Systems Review of Systems: All systems reviewed & are unremarkable except as noted in Subjective Physical Exam Physical Exam: GENERAL: WD/WN F in NAD, on RA HEENT: NC/AT. No pallor, no icterus. Pupils equal, round and reactive to light. Oral mucosa moist. Left cheek crusted/infected wound, decreasing erythema. NECK: No JVD, no neck masses. HEART: S1 and S2 heard. Regular rate and rhythm. No murmur, no gallop. RESPIRATORY: Normal AP diameter. No accessory muscle use. No wheezing, no crackles. ABDOMEN: Soft, bowel sounds present, nontender, no distention. NEURO:Awake and answers some questions appropriately. Flat affect. Speech is clear. Obeys simple commands. Moves extremities. Skin: bruise/ruptered blisters over b/l inner thigh and genitalia, bruise under Rt breast and over left breast. Lt face w/ crusted/infected wound. Results & Data Results & Data Vital Signs (Past 12 Hours) Vital Signs Temp Pulse Pulse Resp BP BP Pulse Ox 12/21/22 16:00 68 12/21/22 15:29 36.6 C 73 16 130/78 95 12/21/22 11:24 36.6 C 88 20 136/82 95 12/21/22 08:00 76 12/21/22 07:30 36.5 C 76 18 163/89 H 94 O2 Del Method 12/21/22 16:00 12/21/22 15:29 Room Air 12/21/22 11:24 Room Air 12/21/22 08:00 12/21/22 07:30 Room Air Medications Administered Current Inpatient Medications Acetaminophen (Acetaminophen 325 Mg Tab) 650 mg PO Q4H PRN PRN Reason: Pain or Fever Stop: 01/14/23 03:44 Last Admin: 12/19/22 03:49 Dose: 650 mg Amlodipine Besylate (Amlodipine Besylate 5 Mg Tab) 2.5 mg PO QAM [facility] Stop: 01/17/23 08:59 Last Admin: 12/21/22 08:36 Dose: 2.5 mg Bacitracin (Bacitracin Oint 15 Gm Tube) 1 appln EXT BID [facility] Stop: 01/16/23 20:59 Last Admin: 12/21/22 08:36 Dose: 1 appln Cephalexin HCl (Cephalexin 500 Mg Cap) 500 mg PO QID [facility]; Protocol Stop: 12/27/22 16:59 Last Admin: 12/21/22 16:20 Dose: 500 mg Docusate Sodium (Docusate Sodium 100 Mg Cap) 100 mg PO BID [facility] Stop: 01/18/23 15:59 Last Admin: 12/21/22 08:35 Dose: 100 mg Doxycycline Hyclate (Doxycycline Hyclate 100 Mg Cap) 100 mg PO BID [facility] Stop: 12/27/22 20:59 Last Admin: 12/21/22 08:35 Dose: 100 mg Enoxaparin Sodium (Enoxaparin Inj 40 Mg/0.4 Ml Syr) 40 mg SQ QAM [facility] Stop: 01/14/23 08:59 Last Admin: 12/21/22 08:36 Dose: 40 mg Furosemide (Furosemide 20 Mg Tab) 20 mg PO QAM [facility] Stop: 01/15/23 09:59 Last Admin: 12/21/22 08:35 Dose: 20 mg Guaifenesin (Guaifenesin 600 Mg Tabcr) 600 mg PO Q12 [facility] Stop: 01/20/23 09:59 Last Admin: 12/21/22 10:37 Dose: 600 mg Lactobacillus Acidophilus (Advanced Probiotic 1250 Mg Capsule) 2 cap PO DAILY [facility] Stop: 01/18/23 15:59 Last Admin: 12/21/22 08:36 Dose: 2 cap Lisinopril (Lisinopril 10 Mg Tab) 10 mg PO QAM [facility] Stop: 01/14/23 08:59 Last Admin: 12/21/22 08:36 Dose: 10 mg
[2022-12-22 06:07] LABS: Hematocrit (blood only) 37.5 % (37.0-47.0); Hemoglobin 12.5 g/dl (12.0-16.0); Mean Corpuscular Hemoglobin 29.9 pg (25.0-34.0); Mean Corpuscular Hgb Conc 33.3 g/dL (32.0-36.0); Mean Corpuscular Volume 89.7 fL (80.0-100.0); Mean Platelet Volume 9.6 fL (9.4-12.4); Platelet Count 306 K/uL (130-400); RDW Coefficient of Variation 14.2 % (11.5-14.5); Red Blood Count 4.18 M/uL (4.20-5.40); White Blood Count 7.03 K/ul (4.8-10.8)
[2022-12-22 06:34] LABS: Calcium 9.6 mg/dl (8.6-10.3); Creatinine Clr Calc Pharmacy 83.4 ml/min; Est GFR (African American) 99.9 ml/min; Est GFR (Non-African American) 86.2 ml/min; Potassium 3.7 mmol/L (3.5-5.1)
[2022-12-22] MEDS: BACITRACIN OINT 15 GM TUBE EXT SCH ×2 (08:28→20:55)
[2022-12-22] MEDS: amLODIPine BESYLATE 5 MG TAB PO SCH (08:29)
[2022-12-22] MEDS: cephALEXin 500 MG CAP PO SCH ×4 (08:29→20:55)
[2022-12-22] MEDS: DOXYCYCLINE HYCLATE 100 MG CAP PO SCH ×2 (08:29→20:56)
[2022-12-22] MEDS: lisinopril 10 MG TAB PO SCH (08:31)
[2022-12-22] MEDS: ENOXAPARIN INJ 40 MG/0.4 ML SYR SQ SCH (08:31)
[2022-12-22] MEDS: ADVANCED PROBIOTIC 1250 MG CAPSULE PO SCH (08:31)
[2022-12-22] MEDS: FUROSEMIDE 20 MG TAB PO SCH (08:31)
[2022-12-22] MEDS: guaiFENesin 600 MG TABCR PO SCH (08:53)
[2022-12-22] MEDS: DOCUSATE SODIUM 100 MG CAP PO SCH ×2 (08:53→20:55)
--- NOTE | 2022-12-22 09:03 | Hospitalist Progress Note ---
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 Per pt's daughter, pt has dementia, she has been refusing help with care lately which she was ok with before. Overall she is declining in her functional status per her dtr. She is being managed for the following: Infected wounds of the face x Lt Sepsis POA:At presentation, WBC and heart rate elevated. Lactate WNL. Fall, generalized weakness Patient presents with fall and subsequent wound which got infected Admitting CXR/CT C-spine/CT chest/CT face/CT head/CT abdomen pelvis/BLE venous Doppler with no acute findings Continue with cefepime 12/15 and doxycycline 12/15, WBC trending down, patient afebrile. Follow admitting blood culture -- 1 of 4 bottle +ve; likely contaminant (coag negat staph). Repeat 12/15 bl cx - negative. Wound care on board, appreciate recs. Body injury not consistent with fall: bruise/blister over b/l inner thighs and genitalia; bruise under rt breast and over left breast. Over left face - crusted wound. Wound care on board. [facility] notified. Rhabdomyolysis:Secondary to fall/infection. Admitting CPK 4725, downtrended. Status post IV fluids. Encourage p.o. intake of fluid. Uncontrolled BP:likely 2/2 current active infection/stress. Continue with home lisinopril & Lasix. Will monitor, titrate BP needs as appropriate/amlodipine was added. Likely NSTEMI type II:Admitting troponin 112, flat trended around 100s. Admitting EKG with sinus tachycardia, no acute ST or T changes noted. Admitting echo with EF of 65%, grade 1 diastolic dysfunction, moderate concentric LVH. No wall motion abnormality noted. Patient with reproducible chest pain. Continue to monitor ov for er telemetry. Cough w/ eating noted (12/20) CXR obtained (12/20) and negative - personally reviewed Speech eval obtained - no aspiration Continues to have a cough but seems improved - CXR repeated on (12/21) as pt is poor historian CXR remains unremarkable Procalcitonin (12/22) negative Other chronic medical conditions:Continue with home meds as and when able. lung cancer status post surgery chronic leg edema as per records, on diuretic Rx ovarian cancer status post surgery Hyperglycemia rule out DM undiagnosed dementia as per family, functional disability DVT prophylaxis: Lovenox subcu Full code PT/OT eval. [facility]. CM assisting w/ dc plan. Patient's daughter (Ms. Annie Talley, contact #[phone]) Admission and Anticipated Discharge Date Admission Date: December 15, 2022 Subjective Patient seen and examined at bedside as a follow-up of infected wounds of the left face and sepsis POA, fall/generalized weakness, rhabdomyolysis, uncontrolled BP, likely NSTEMI type II. Patient is sitting up in bed, on room air, NAD Patient denies any headache or dizziness, denies fever or chest pain, or shortness of breath. She has cough, and CXR obtained was negative. Pt is a poor historian and can't provide much more info. Office of Aging following. Review of Systems Review of Systems: All systems reviewed & are unremarkable except as noted in Subjective Physical Exam Physical Exam: GENERAL: WD/WN F in NAD, on RA HEENT: NC/AT. No pallor, no icterus. Pupils equal, round and reactive to light. Oral mucosa moist. Left cheek crusted/infected wound, decreasing erythema. NECK: No JVD, no neck masses. HEART: S1 and S2 heard. Regular rate and rhythm. No murmur, no gallop. RESPIRATORY: Normal AP diameter. No accessory muscle use. No wheezing, no crackles. ABDOMEN: Soft, bowel sounds present, nontender, no distention. NEURO:Awake and answers some questions appropriately. Flat affect. Speech is clear. Obeys simple commands. Moves extremities. Skin: bruise/ruptured blisters over b/l inner thigh and genitalia, bruise under Rt breast and over left breast. Lt face w/ crusted wound - face now healed. Results & Data Results & Data Vital Signs (Past 12 Hours) Vital Signs Temp Pulse Pulse Resp BP Pulse Ox O2 Del Method 12/22/22 07:37 36.5 C 64 22 161/80 H 95 Room Air 12/22/22 03:04 36.7 C 67 18 159/78 H 94 Room Air 12/21/22 23:09 64 12/21/22 22:56 36.7 C 66 18 156/83 H 95 Room Air Laboratory Results 12/22/22 12/22/22 12/22/22 Range/Units 05:29 05:29 05:29 WBC 7.03 (4.8-10.8) K/ul RBC 4.18 L (4.20-5.40) M/uL Hgb 12.5 (12.0-16.0) g/dl Hct 37.5 (37.0-47.0) % MCV 89.7 (80.0-100.0) fL MCH 29.9 (25.0-34.0) pg MCHC 33.3 (32.0-36.0) g/dL RDW Std Deviation 46.0 (36.4-46.3) fL RDW Coeff of Champ 14.2 (11.5-14.5) % Plt Count 306 (130-400) K/uL MPV 9.6 (9.4-12.4) fL Sodium 138 (136-145) mmol/L Potassium 3.7 (3.5-5.1) mmol/L Chloride 104 (98-107) mmol/L Carbon Dioxide 26 (21-32) mmol/L Anion Gap 8 (3-11) BUN 28 H (6-23) mg/dl Creatinine 0.56 L (0.6-1.2) mg/dl Est Cr Clr Drug Dosing 83.4 ml/min Est GFR ( Amer) 99.9 ml/min Est GFR (Non-Af Amer) 86.2 ml/min BUN/Creatinine Ratio 50.0 H (10-20) Glucose 98 (70-99(Fasting)) mg/dl Calcium 9.6 (8.6-10.3) mg/dl Phosphorus 3.0 (2.5-4.9) mg/dl Magnesium 2.0 (1.7-2.4) mg/dl Procalcitonin < 0.05 (0-0.5) ng/ml Medications Administered Current Inpatient Medications Acetaminophen (Acetaminophen 325 Mg Tab) 650 mg PO Q4H PRN PRN Reason: Pain or Fever Stop: 01/14/23 03:44 Last Admin: 12/19/22 03:49 Dose: 650 mg Amlodipine Besylate (Amlodipine Besylate 5 Mg Tab) 2.5 mg PO QAM [facility] Stop: 01/17/23 08:59 Last Admin: 12/22/22 08:29 Dose: 2.5 mg Bacitracin (Bacitracin Oint 15 Gm Tube) 1 appln EXT BID [facility] Stop: 01/16/23 20:59 Last Admin: 12/22/22 08:28 Dose: 1 appln Cephalexin HCl (Cephalexin 500 Mg Cap) 500 mg PO QID [facility]; Protocol Stop: 12/27/22 16:59 Last Admin: 12/22/22 08:29 Dose: 500 mg Docusate Sodium (Docusate Sodium 100 Mg Cap) 100 mg PO BID [facility] Stop: 01/18/23 15:59 Last Admin: 12/22/22 08:53 Dose: Not Given Doxycycline Hyclate (Doxycycline Hyclate 100 Mg Cap) 100 mg PO BID [facility] Stop: 12/27/22 20:59 Last Admin: 12/22/22 08:29 Dose: 100 mg Enoxaparin Sodium (Enoxaparin Inj 40 Mg/0.4 Ml Syr) 40 mg SQ QAM [facility] Stop: 01/14/23 08:59 Last Admin: 12/22/22 08:31 Dose: 40 mg Furosemide (Furosemide 20 Mg Tab) 20 mg PO QAM [facility] Stop: 01/15/23 09:59 Last Admin: 12/22/22 08:31 Dose: 20 mg Guaifenesin (Guaifenesin 600 Mg Tabcr) 600 mg PO Q12 [facility] Stop: 01/20/23 09:59 Last Admin: 12/22/22 08:53 Dose: Not Given Lactobacillus Acidophilus (Advanced Probiotic 1250 Mg Capsule) 2 cap PO DAILY [facility] Stop: 01/18/23 15:59 Last Admin: 12/22/22 08:31 Dose: 2 cap Lisinopril (Lisinopril 10 Mg Tab) 10 mg PO QAM [facility] Stop: 01/14/23 08:59 Last Admin: 12/22/22 08:31 Dose: 10 mg
[2022-12-22] MEDS: guaiFENesin SUGAR FREE 200 MG/10 ML UDC PO SCH ×4 (09:31→20:56)
[2022-12-22] MEDS: LIDOCAINE 5% 1 PATCH TD SCH (12:03)
[2022-12-22] MEDS ORDERED: ONDANSETRON INJ 2 MG/ML 2 ML VIAL IV STA (21:53)
[2022-12-23] MEDS: DOCUSATE SODIUM 100 MG CAP PO SCH ×2 (08:42→20:05)
[2022-12-23] MEDS: BACITRACIN OINT 15 GM TUBE EXT SCH ×2 (08:43→20:05)
[2022-12-23] MEDS: FUROSEMIDE 20 MG TAB PO SCH (08:43)
[2022-12-23] MEDS: ENOXAPARIN INJ 40 MG/0.4 ML SYR SQ SCH (08:43)
[2022-12-23] MEDS: cephALEXin 500 MG CAP PO SCH ×4 (08:43→20:05)
[2022-12-23] MEDS: DOXYCYCLINE HYCLATE 100 MG CAP PO SCH ×2 (08:43→20:04)
[2022-12-23] MEDS: guaiFENesin SUGAR FREE 200 MG/10 ML UDC PO SCH ×4 (08:44→20:04)
[2022-12-23] MEDS: lisinopril 10 MG TAB PO SCH (08:44)
[2022-12-23] MEDS: LIDOCAINE 5% 1 PATCH TD SCH (08:44)
[2022-12-23] MEDS: ADVANCED PROBIOTIC 1250 MG CAPSULE PO SCH (08:44)
[2022-12-23] MEDS: amLODIPine BESYLATE 5 MG TAB PO SCH (09:26)
--- NOTE | 2022-12-23 10:33 | Hospitalist Progress Note ---
Date of Service December 23, 2022 Assessment & Plan (1) Sepsis: Plan Per previous hospitalist w/ addendum 82 yo F with HTN, lung cancer status post surgery, chronic leg edema, ovarian cancer status post surgery, ambulatory dysfunction, concern of dementia per family [not officially diagnosed per family] was brought into the ED 12/14 secondary to increasing confusion after a fall 2 days ago [employer]. Per EMS evaluation, She had wounds in the left cheek and blistering redness in other parts of the body; she strongly smelled of urine and was incontinent of stool. Per pt's daughter, pt has dementia, she has been refusing help with care lately which she was ok with before. Overall she is declining in her functional status per her dtr. She is being managed for the following: Infected wounds of the face x Lt Sepsis POA:At presentation, WBC and heart rate elevated. Lactate WNL. Fall, generalized weakness Patient presents with fall and subsequent wound which got infected Admitting CXR/CT C-spine/CT chest/CT face/CT head/CT abdomen pelvis/BLE venous Doppler with no acute findings Continue with cefepime 12/15 and doxycycline 12/15, WBC trending down, patient afebrile. Follow admitting blood culture -- 1 of 4 bottle +ve; likely contaminant (coag negat staph). Repeat 12/15 bl cx - negative. Wound care on board, appreciate recs. Body injury not consistent with fall: bruise/blister over b/l inner thighs and genitalia; bruise under rt breast and over left breast. Over left face - crusted wound. Wound care on board. OAA notified. Rhabdomyolysis:Secondary to fall/infection. Admitting CPK 4725, downtrended. Status post IV fluids. Encourage p.o. intake of fluid. Uncontrolled BP:likely 2/2 current active infection/stress. Continue with home lisinopril & Lasix. Will monitor, titrate BP needs as appropriate/amlodipine was added. Likely NSTEMI type II:Admitting troponin 112, flat trended around 100s. Admitting EKG with sinus tachycardia, no acute ST or T changes noted. Admitting echo with EF of 65%, grade 1 diastolic dysfunction, moderate concentric LVH. No wall motion abnormality noted. Patient with reproducible chest pain. Continue to monitor on telemetry. Cough w/ eating noted (7/20) CXR obtained (12/20) and negative - personally reviewed Speech eval obtained - and video swallow study obtained - no aspiration Continues to have a cough but seems improved - CXR repeated on (12/21) as pt is poor historian CXR remains unremarkable Procalcitonin (12/22) negative, WBC normal Other chronic medical conditions:Continue with home meds as and when able. lung cancer status post surgery chronic leg edema as per records, on diuretic Rx ovarian cancer status post surgery Hyperglycemia rule out DM undiagnosed dementia as per family, functional disability DVT prophylaxis: Lovenox subcu Full code PT/OT eval. [facility] CM assisting w/ dc plan. Patient's daughter (Ms. Annie Talley, contact #[phone]) Admission and Anticipated Discharge Date Admission Date: December 15, 2022 Subjective Patient seen in a follow-up of infected wounds of the left face and sepsis POA, fall/generalized weakness, rhabdomyolysis, uncontrolled BP, likely NSTEMI type II. Patient is sitting up in bed, on room air, NAD Patient denies any headache or dizziness, denies fever or chest pain, or shortness of breath. She has cough, and CXR obtained was negative. Pt is a poor historian and can't provide much more info. Discussed w/ RN - assist w/ feeding, sit up in bed or chair as able [facility] following. Review of Systems Review of Systems: All systems reviewed & are unremarkable except as noted in Subjective Physical Exam Physical Exam: GENERAL: WD/WN F in NAD, on RA HEENT: NC/AT. No pallor, no icterus. Pupils equal, round and reactive to light. Oral mucosa moist. Left cheek wound now healed, decreasing erythema. NECK: No JVD, no neck masses. HEART: S1 and S2 heard. Regular rate and rhythm. No murmur, no gallop. RESPIRATORY: Normal AP diameter. No accessory muscle use. No wheezing, no crackles. ABDOMEN: Soft, bowel sounds present, nontender, no distention. NEURO:Awake and answers some questions appropriately. Flat affect. Speech is clear. Obeys simple commands. Moves extremities. Skin: bruise/ruptured blisters over b/l inner thigh and genitalia, bruise under Rt breast and over left breast. Lt face w/ crusted wound - face now healed. Results & Data Results & Data Vital Signs (Past 12 Hours) Vital Signs Temp Pulse Pulse Resp BP Pulse Ox O2 Del Method 12/23/22 08:00 Room Air 12/23/22 05:58 60 12/23/22 07:51 36.8 C 66 16 159/77 H 92 Room Air 12/23/22 02:27 36.6 C 69 18 150/80 H 94 Room Air 12/22/22 23:47 66 12/22/22 23:47 Room Air 12/22/22 22:46 36.7 C 97 H 18 164/82 H 97 Room Air Medications Administered Current Inpatient Medications Acetaminophen (Acetaminophen 325 Mg Tab) 650 mg PO Q4H PRN PRN Reason: Pain or Fever Stop: 01/14/23 03:44 Last Admin: 12/19/22 03:49 Dose: 650 mg Amlodipine Besylate (Amlodipine Besylate 5 Mg Tab) 2.5 mg PO QAM [facility] Stop: 01/17/23 08:59 Last Admin: 12/23/22 09:26 Dose: 2.5 mg Bacitracin (Bacitracin Oint 15 Gm Tube) 1 appln EXT BID [facility] Stop: 01/16/23 20:59 Last Admin: 12/23/22 08:43 Dose: 1 appln Cephalexin HCl (Cephalexin 500 Mg Cap) 500 mg PO QID [facility]; Protocol Stop: 12/27/22 16:59 Last Admin: 12/23/22 08:43 Dose: 500 mg Docusate Sodium (Docusate Sodium 100 Mg Cap) 100 mg PO BID [facility] Stop: 01/18/23 15:59 Last Admin: 12/23/22 08:42 Dose: Not Given Doxycycline Hyclate (Doxycycline Hyclate 100 Mg Cap) 100 mg PO BID [facility] Stop: 12/27/22 20:59 Last Admin: 12/23/22 08:43 Dose: 100 mg Enoxaparin Sodium (Enoxaparin Inj 40 Mg/0.4 Ml Syr) 40 mg SQ QAM [facility] Stop: 01/14/23 08:59 Last Admin: 12/23/22 08:43 Dose: 40 mg Furosemide (Furosemide 20 Mg Tab) 20 mg PO QAM [facility] Stop: 01/15/23 09:59 Last Admin: 12/23/22 08:43 Dose: 20 mg Guaifenesin (Guaifenesin Sugar Free 200 Mg/10 Ml Udc) 200 mg PO QID [facility] Stop: 01/21/23 09:04 Last Admin: 12/23/22 08:44 Dose: 200 mg Lactobacillus Acidophilus (Advanced Probiotic 1250 Mg Capsule) 2 cap PO DAILY [facility] Stop: 01/18/23 15:59 Last Admin: 12/23/22 08:44 Dose: 2 cap Lidocaine (Lidocaine 5% 1 Patch) [facility] Stop: 01/21/23 10:59 Last Admin: 12/23/22 08:44 Dose: 1 patch Lisinopril (Lisinopril 10 Mg Tab) 10 mg PO QAM [facility] Stop: 01/14/23 08:59 Last Admin: 12/23/22 08:44 Dose: 10 mg Miscellaneous (Remove Lidoderm Patch) 1 each N/A DAILY@2100 [facility] Stop: 01/21/23 20:59 Last Admin: 12/22/22 20:56 Dose: 1 each
[2022-12-24 07:16] LABS: Creatinine Clr Calc Pharmacy 91.8 ml/min; Est GFR (African American) 103.7 ml/min; Est GFR (Non-African American) 89.5 ml/min
[2022-12-24] MEDS: LIDOCAINE 5% 1 PATCH TD SCH (09:00)
[2022-12-24] MEDS: DOXYCYCLINE HYCLATE 100 MG CAP PO SCH (09:00)
[2022-12-24] MEDS: lisinopril 10 MG TAB PO SCH (09:00)
[2022-12-24] MEDS: guaiFENesin SUGAR FREE 200 MG/10 ML UDC PO SCH ×2 (09:00→12:40)
[2022-12-24] MEDS: cephALEXin 500 MG CAP PO SCH ×2 (09:00→12:40)
[2022-12-24] MEDS: ADVANCED PROBIOTIC 1250 MG CAPSULE PO SCH (09:00)
[2022-12-24] MEDS: DOCUSATE SODIUM 100 MG CAP PO SCH (09:00)
[2022-12-24] MEDS: BACITRACIN OINT 15 GM TUBE EXT SCH (09:01)
[2022-12-24] MEDS: amLODIPine BESYLATE 5 MG TAB PO SCH (09:01)
[2022-12-24] MEDS: FUROSEMIDE 20 MG TAB PO SCH (09:01)
[2022-12-24] MEDS: ENOXAPARIN INJ 40 MG/0.4 ML SYR SQ SCH (09:01)
--- NOTE | 2022-12-24 11:17 | Discharge Summary ---
Date of Service December 24, 2022 Admission HPI Per Admitting Provider History obtained from patient, ER provider, and records. Medical history significant for hypertension, lung cancer status post surgery, chronic leg edema as per records, ovarian cancer status post surgery, ambulatory dysfunction, undiagnosed dementia as per family. Patient lives at home with her . Patient fell at home about 2 days ago as per EMS report. Family able to sit patient back in recliner chair. Patient noted to be more confused than usual last night. EMS found patient to have wounds on the left cheek and blistering redness in other parts of the body. Patient strongly smelled of urine and was incontinent of stool. Patient does not know why she is in the hospital. Denies headache, chest pain, SOB, abdominal pain, dysuria symptoms. Highest SBP of 190s at the ER. Medical History as above Surgical History : Double lung lobectomy, FLORY Family History : Hypertension Personal/Social history : Non-smoker, occasional EtOH intake, lives with Admission Exam Per Admitting Provider GENERAL: Pleasant, demented, no respiratory distress SKIN: Normal color, erythematous spots chest and lower extremities, warm HEENT: [place] palpebral conjunctivae, tender left facial swelling, infected open wound left cheek, left ptosis, dry buccal mucosa NECK : Supple, no tenderness CHEST : CTA, no tenderness HEART : Tachycardic, systolic murmur ABDOMEN: Some distention, nontender EXTREMITIES : Bilateral LE swelling, no LE tenderness, no other conspicuous deformities noted NEUROLOGIC : Demented, no facial asymmetry, no other gross focality Principal Diagnosis Sepsis Infected wounds Fall, generalized weakness Discharge Exam GENERAL: WD/WN F in NAD, on RA HEENT: NC/AT. No pallor, no icterus. Pupils equal, round and reactive to light. Oral mucosa moist. Left cheek wound now healed, decreasing erythema. NECK: No JVD, no neck masses. HEART: S1 and S2 heard. Regular rate and rhythm. No murmur, no gallop. RESPIRATORY: Normal AP diameter. No accessory muscle use. No wheezing, no crackles. ABDOMEN: Soft, bowel sounds present, nontender, no distention. NEURO:Awake and answers some questions appropriately. Flat affect. Speech is clear. Obeys simple commands. Moves extremities. Skin: bruise/ruptured blisters over b/l inner thigh and genitalia, bruise under Rt breast and over left breast (improved). Lt face w/ crusted wound - face now healed. Discharge Data Allergies Allergy/AdvReac Type Severity Reaction Status Date / Time No Known Allergies Allergy Unverified 12/14/22 22:31 Consultations 12/14/22 22:03 ED Decision to Admit Stat Ordered Studies 12/14/22 20:39 CT cervical spine wo con Stat FINDINGS: Vertebrae: Unremarkable. No acute fracture. Discs/spinal canal/neural foramina: Moderately advanced multilevel degenerative disc disease changes seen most prominently at C5/6 and C6/7 junction. No spinal canal stenosis. Soft tissues: Unremarkable. IMPRESSION: No acute fracture or dislocation CT chest diagnostic wo con Stat FINDINGS: Lungs: Unremarkable. No mass. No consolidation. Pleural space: Unremarkable. No pneumothorax. No significant effusion. Heart: Moderate cardiomegaly. Mild coronary vascular calcifications are seen. No significant pericardial effusion. Bones/joints: Unremarkable. No acute fracture. No dislocation. Lymph nodes: Unremarkable. No enlarged lymph nodes. IMPRESSION: No acute traumatic injuries seen in the chest CT facial bones wo con Stat FINDINGS: Bones/joints: No acute fracture. Soft tissues: Unremarkable. Orbits: Unremarkable. Sinuses: Unremarkable. No air-fluid levels. IMPRESSION: Normal maxillofacial CT. CT head/brain wo con Stat FINDINGS: Brain: Chronic periventricular ischemic demargination changes seen due to small vessel disease. No hemorrhage. Ventricles: Unremarkable. No ventriculomegaly. Bones/joints: Unremarkable. No acute fracture. Soft tissues: Unremarkable. Sinuses: Unremarkable as visualized. No acute sinusitis. Mastoid air cells: Unremarkable as visualized. No mastoid effusion. IMPRESSION: No acute intracranial abnormality 12/14/22 20:42 CT abd pelvis wo con Stat ABDOMEN: Liver: Unremarkable. Gallbladder and bile ducts: Unremarkable. No calcified stones. No ductal dilation. Pancreas: Unremarkable. No ductal dilation. Spleen: Unremarkable. No splenomegaly. Adrenals: Unremarkable. No mass. Kidneys and ureters: Unremarkable. No obstructing stones. No hydronephrosis. Stomach and bowel: Unremarkable. No obstruction. No mucosal thickening. PELVIS: Appendix: No findings to suggest acute appendicitis. Bladder: Unremarkable. No stones. Reproductive: Unremarkable as visualized. ABDOMEN and PELVIS: Intraperitoneal space: Unremarkable. No free air. No significant fluid collection. 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 No acute fracture. No dislocation. Soft tissues: Unremarkable. Vasculature: Moderately advanced vascular calcifications seen in the abdominal aorta and its branches. No abdominal aortic aneurysm. Lymph nodes: Unremarkable. No enlarged lymph nodes. IMPRESSION: No acute intra-abdominal process identified 12/15/22 01:30 US venous doppler LE BI Stat IMPRESSION: Normal bilateral lower extremity duplex venous ultrasound. 12/20/22 14:00 Fluoro video [FL video swallow] Routine IMPRESSION: 1. No tracheal aspiration identified. Hospital Course (1) Sepsis: Plan 82 yo F with HTN, lung cancer status post surgery, chronic leg edema, ovarian cancer status post surgery, ambulatory dysfunction, concern of dementia per family [not officially diagnosed per family] was brought into the ED 12/14 secondary to increasing confusion after a fall 2 days ago [employer]. Per EMS evaluation, She had wounds in the left cheek and blistering redness in other parts of the body; she strongly smelled of urine and was incontinent of stool. Per pt's daughter, pt has dementia, she has been refusing help with care lately which she was ok with before. Overall she is declining in her functional status per her dtr. She is being managed for the following: Infected wounds of the face x Lt Sepsis POA:At presentation, WBC and heart rate elevated. Lactate WNL. Fall, generalized weakness Patient presents with fall and subsequent wound which got infected Admitting CXR/CT C-spine/CT chest/CT face/CT head/CT abdomen pelvis/BLE venous Doppler with no acute findings Continue with cefepime 12/15 and doxycycline 12/15, WBC trending down, patient afebrile. Follow admitting blood culture -- 1 of 4 bottle +ve; likely contaminant (coag negat staph). Repeat 12/15 bl cx - negative. Wound care on board, appreciate recs. Body injury not consistent with fall: bruise/blister over b/l inner thighs and genitalia; bruise under rt breast and over left breast. Over left face - crusted wound. Wound care on board. OAA notified. Now much improved/ healing well. Rhabdomyolysis:Secondary to fall/infection. Admitting CPK 4725, downtrended. Status post IV fluids. Encourage p.o. intake of fluid. Uncontrolled BP:likely 2/2 current active infection/stress. Continue with home lisinopril & Lasix. Lisinopril was increased to 10 mg. amlodipine was added. BP now better controlled. Follow up as outpt. Likely NSTEMI type II:Admitting troponin 112, flat trended around 100s. Admitting EKG with sinus tachycardia, no acute ST or T changes noted. Admitting echo with EF of 65%, grade 1 diastolic dysfunction, moderate concentric LVH. No wall motion abnormality noted. Patient with reproducible chest pain. Continued to monitor on telemetry. Cough w/ eating noted (12/20) CXR obtained (12/20) and negative - personally reviewed Speech eval obtained - and video swallow study obtained - no aspiration Continues to have a cough but seems improved - CXR repeated on (12/21) as pt is poor historian CXR remains unremarkable Procalcitonin (12/22) negative, WBC normal cont. w/ mucinex, cough improved Other chronic medical conditions:Continue with home meds as and when able. lung cancer status post surgery chronic leg edema as per records, on diuretic Rx ovarian cancer status post surgery Hyperglycemia rule out DM undiagnosed dementia as per family, functional disability Total Time Total Time Spent Total Time Spent (In Minutes): 40 Discharge Plan Discharge Items Patient Disposition: Transfer Group Home Fac Reason For Visit: SEPSIS, TROP ELEV Discharge Diagnosis: Sepsis Infected wounds Fall, generalized weakness Activity: Per Instructions section Non-emergency contact: Primary Care Provider Call non-emergency contact if: you have any medication questions and your symptoms worsen Follow-up/Referrals: Brayan Johnson MD [Primary Care Provider] - Diet: Regular and Heart Healthy Diet Comment: texture: Minced and moist Addtl Attending Provider Instructions: Follow up with primary care doctor within 1 week. Finish antibiotic treatment as prescribed. Your lisinopril was increased to 10 mg and you were started on a new medication for elevated blood pressure - amlodipine - take it as prescribed and further discuss with your doctor. Pending Studies at Discharge: No Stand-Alone Forms: My [facility] Skilled Items Patient informed of condition?: Yes DNR: No Discharge Level of Care: Skilled Communicable Disease: No Discharge Prognosis: Stable Lines: None Urinary Catheter: Yes Medications and DC Order Prescriptions: New cephalexin 500 mg Capsule 500 mg PO QID 2 Days Qty: 8 0RF lisinopril 10 mg Tablet 10 mg PO QAM Qty: 30 0RF amlodipine [Norvasc] 5 mg Tablet 2.5 mg PO QAM Qty: 30 0RF Advanced Probiotic 625 mg (10 billion cell) Capsule 2 cap PO DAILY 2 Days Qty: 4 0RF guaifenesin 100 mg/5 mL Liquid 200 mg PO QID 5 Days Qty: 200 0RF lidocaine 5 % Adhesive Patch,Medicated 1 patch transdermal QAM 5 Days Qty: 5 0RF Continued furosemide 20 mg tablet 20 mg PO QAM Discontinued lisinopril 5 mg tablet 5 mg PO QAM Discharge Orders: Discharge Order (Routine); Ordered 12/24/22 Ordered By: Bolivar Garcia Admission Data Admit Date/Time: 12/15/22 01:33 Attending Provider: Bolivar Garcia Admit Provider: Tayo Waterman Primary Care Provider: Brayan Johnson Other Providers: Tayo Waterman ; Gayla Lyn,Rehab ; [facility] ; [place] ; [facility] ; [facility] ; Konrad Herrera
== END 2022-12-24 15:16 | DRG 871 ==
LOC: ED 19:21 → SUATTDRO 12-15 01:33 → EDINP 12-15 01:33 → 2N 12-15 03:46